=== PATIENT | male | born 1945 | race Caucasian/White ===

== ENCOUNTER → 2018-08-29 07:34 | Outpatient (CLI) | payer MEDICARE, SELFPAY ==
[2018-08-16 11:30] VITALS: BMI 33.3
--- NOTE | 2018-08-29 07:37 | ECHOCS_ITS ---
Reason For Study: AFIB/FLUTTER Procedure This was a 2D Doppler, Color Flow transthoracic echocardiogram. Contrast injection was performed. The study was technically difficult. Left Ventricle Normal LV size. The estimated ejection fraction is 40 %. Moderate segmental systolic dysfunction (see wall motion). Septal motion consistent with IVCD. Diastolic function is indeterminate. Mid- anteroseptal : Akinetic. Mid-Anterior : Hypokinetic. Basal anteroseptal: Hypokinetic. Mobile : Hypokinetic. The rest of the wall segments are normal. Right Ventricle Normal size and thickness. Normal systolic function. Atria Normal left atrium. Normal right atrium. Mitral Valve Mild (1+) eccentric mitral valve insufficiency. Status post mitral valve repair. Tricuspid Valve Normal tricuspid valve. Mild tricuspid valve insufficiency. Aortic Valve Trisinus/trileaflet aortic valve. Pulmonic Valve Normal pulmonic valve. Mild (1+) pulmonic valve insufficiency. Great Vessels Normal aortic root. The pulmonary artery is normal size. Normal inferior vena cava. Pericardium/Pleural No pericardial effusion. Medication 22 gauge I.V. with prn adaptor inserted into left arm. Diluted definity 3ml given slow IV push to enhance endocardial definition. MMode/2D Measurements & Calculations LVIDd: 4.9 cm IVSd: 0.88 cm Ao root diam: 3.2 cm LVIDs: 4.3 cm LVPWd: 0.99 cm RVDd: 4.4 cm FS: 12.9 % LAV(MOD-bp): 53.6 ml LVAd ap4: 32.5 cm2 SV(MOD-sp4): 21.9 ml LAV(MOD-bp) Indexed: 25.6 ml/m2 EDV(MOD-sp4): 110.4 ml LAV(MOD-sp2): 46.1 ml EDV(sp4-el): 114.6 ml LAV(MOD-sp4): 55.9 ml LVAs ap4: 28.9 cm2 ESV(MOD-sp4): 88.5 ml ESV(sp4-el): 91.7 ml EF(MOD-sp4): 19.8 % EF(sp4-el): 20.0 % SV(sp4-el): 22.9 ml LA A4 area: 20.0 cm2 LA dimension(2D): 5.0 cm RA A4 area: 16.5 cm2 Time Measurements MV dec time: 0.06 sec Doppler Measurements & Calculations MV E max jose: 152.9 cm/sec MV V2 max: 155.1 cm/sec Ao V2 max: 111.2 cm/sec MV max P.6 mmHg Ao max P.0 mmHg MV V2 mean: 63.4 cm/sec MV mean P.5 mmHg MV V2 VTI: 30.6 cm LV V1 max: 90.5 cm/sec PA V2 max: 108.9 cm/sec TR max jose: 152.0 cm/sec LV V1 max P.3 mmHg TR max P.2 mmHg MV P1/2t-pr_phl: 70.3 msec Interpretation Summary Normal LV size. The estimated ejection fraction is 40 %. Septal motion consistent with IVCD. Diastolic function is indeterminate. Mild (1+) eccentric mitral valve insufficiency. Contrast injection was performed. Ordering Physician: German Pettit Referring Physician: MAURO MIRZA Performed By: Sydney Henry, GENE, RVT
== END ==
PROVIDERS: Family Provider Internal Medicine; PCP Internal Medicine; Referring Provider Internal Medicine Cardiovascular Disease; Visit Provider Internal Medicine Cardiovascular Disease
DX: I47.1 Supraventricular tachycardia (principal); I48.0 Paroxysmal atrial fibrillation; R42 Dizziness and giddiness; R00.0 Tachycardia, unspecified; I50.31 Acute diastolic (congestive) heart failure
CPT/HCPCS: 93225; 93226; 93306; Q9957; A4216; C8929

== ENCOUNTER 2018-09-11 10:03 | Day surgery (SDC) | payer MEDICARE, SELFPAY ==
[2018-09-07 13:15] VITALS: BMI 34.2
--- NOTE | 2018-09-07 13:56 | HP_ITS ---
HPI HPI Surgical H&P: Yes Details: ANANDA DUPREE, is a 73 M who presents to the office today for a visit. He is a gentleman with a history of coronary artery disease status post coronary artery bypass surgery remotely with a left internal mammary artery to the left anterior descending artery, saphenous vein graft to the obtuse marginal branch, saphenous vein graft to the posterior descending artery. He had previously been followed by the physicians in [place]. In 2015 he underwent a left heart catheterization which demonstrated a patent left internal mammary artery to the left anterior descending artery and the 2 saphenous vein grafts were occluded. In January 2016 he underwent angioplasty and stenting of the proximal and distal [place] circumflex artery in February 2016 he underwent angioplasty of the first and second obtuse marginal branch in the mid circumflex artery. It appears that he presented to [facility] with rapid heart rate and palpitations and he was noted to be in some sort of supraventricular tachycardia with a rate of approximately 120 to 140 bpm and a left bundle branch block pattern. He also has a history of hypertension, hyperlipidemia, ischemic cardiomyopathy. He was given intravenous adenosine with transient slowing of the heart rate and also Cardizem. It demonstrated that he was in an atrial fibrillation flutter rhythm. He was taking the diltiazem but he has had to change the times that he takes it because he still has some tachycardia. It appears that his last echocardiogram in 2013 had demonstrated an ejection fraction of approximately 30%. He has also been short of breath with exertion but he has had no chest pain. He has had no dizziness or diaphoresis no syncope or syncope. He still feels that his heart rate is fast. His electrocardiogram today demonstrates a wide complex tachycardia with a left bundle branch block pattern and a rate of 122 bpm which is suspicious for atrial flutter with a 2-1 block. 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 Accompanied by: Is patient in pain?: No Allergies Penicillins Allergy (Severe, Verified 09/07/18 13:11) Hives valsartan Allergy (Severe, Verified 09/07/18 13:11) Anaphylaxis diazepam Adverse Reaction (Severe, Verified 09/07/18 13:11) Confusion hydrocodone Adverse Reaction (Severe, Verified 09/07/18 13:11) Hallucintations pantoprazole [From Protonix] Adverse Reaction (Intermediate, Verified 09/07/18 13:11) Nausea propylene glycol Adverse Reaction (Intermediate, Verified 09/07/18 13:11) Vomiting ticagrelor [From Brilinta] Adverse Reaction (Intermediate, Verified 09/07/18 13:11) Shortness of Breath tramadol Adverse Reaction (Intermediate, Verified 09/07/18 13:11) constipation, decreased urination Medications Lactobacillus acidophilus capsule See Rx Instructions PO DAILY 02/14/18 [History Confirmed 09/07/18] nitroglycerin 0.4 mg sublingual tablet 0.4 mg SUBLINGUAL Q5-15M PRN 02/14/18 [History Confirmed 09/07/18] apixaban 5 mg tablet 5 mg PO BID #180 tab 08/16/18 [Rx Confirmed 09/07/18] carvedilol 25 mg tablet 25 mg PO BID #180 tab 08/16/18 [Rx Confirmed 09/07/18] furosemide 40 mg tablet 40 mg PO DAILY #90 tab 08/16/18 [Rx Confirmed 09/07/18] diltiazem CD 180 mg capsule,extended release 24 hr 180 mg PO DAILY #30 cap 08/25/18 [Rx Confirmed 09/07/18] amiodarone 200 mg tablet 200 mg PO DAILY #90 tab 09/07/18 [Rx Confirmed 09/07/18] lisinopril 10 mg tablet 10 mg PO DAILY #90 tab 09/07/18 [Rx Confirmed 09/07/18] [facility] Medical History Acute diastolic (congestive) heart failure (Chronic) Left bundle branch block (Chronic) Paroxysmal supraventricular tachycardia (Chronic) Paroxysmal atrial fibrillation (Chronic) Essential (primary) hypertension (Chronic) Chronic systolic (congestive) heart failure (Chronic) Hyperlipidemia (Chronic) Ischemic cardiomyopathy (Chronic) History of non-ST elevation myocardial infarction (NSTEMI) (Chronic) Atherosclerotic heart disease of [place] coronary artery without angina pectoris (Chronic) Obesity (Chronic) Type 2 diabetes mellitus (Chronic) Lower GI bleed (Resolved) Surgical History H/O coronary artery bypass surgery (Resolved 02/04/14) History of coronary artery stent placement (Resolved 03/23/16) History of mitral valve repair (Chronic 02/04/14) History of rectal abscess (Chronic) History of cardioversion (Resolved 02/28/14) History of left heart catheterization (Resolved 12/09/15) Family History Father CAD (coronary artery disease) Hypertension Mother CAD (coronary artery disease) Brother Diabetes CAD (coronary artery disease) Colon cancer Sister Diabetes Social History Smoking Status: Former smoker ROS Const Const: Positive for fatigue; negative for weakness, headache(s), frequent falls, night sweats, daytime sleepiness or excessive sweating Eyes Eyes: Negative for blind spots, loss of peripheral vision, transient loss of vision, blurry vision or double vision ENT ENT: Negative for headache(s), dizziness, Nosebleed/epistaxis, balance problems, lip swelling or tongue swelling Cardio Chest Pain: No Palpitations: No Edema: None Muscle aches with walking: None Resp Respiratory: Negative for SOB with activity, SOB at rest, SOB orthopnea\SOB lying down, Cough or paroxysmal nocturnal dyspnea GI GI: Negative nausea, vomiting, heartburn, bright, red blood in stools or black,tarry stools : Negative for hematuria Musc Musc: Negative for muscle aches/ myalgia, muscle weakness, joint pain or balance problems Skin Skin: Negative non-healing lesions, rash or unusual bruising Neuro Neuro: Negative for dizziness, lightheadedness, orthostatic symptoms, frequent falls, headache(s), weakness, blurry vision, double vision or lack of coordination Darius Hematologic/Lymphatic: Negative for easy bleeding or easy bruising Endo Endo: Positive for fatigue; negative for cold intolerance, heat intolerance, excessive sweating, increased thirst/drinking or hair loss Psych Psych: Negative for anxiety or depression Allergy Allergy/Immunology: Negative for throat swelling, Negative for tongue swelling, Negative for hives, Negative for rash, Negative for lip swelling Cardiology Exam Const Appearance: cooperative, healthy appearing, no acute distress, well developed and well groomed Nutritional Appearance: average body habitus and well nourished Orientation: alert, awake and oriented x3 Head Head: normal to inspection, normocephalic and atraumatic Ears: hearing grossly normal bilaterally and external ears normal Nose: external nose normal, nares normal, nasal mucous membranes and turbinates normal, septum normal, no nasal discharge Face and Sinus: face symmetric Mouth: oral mucosae normal, tongue normal, oropharynx normal and moist mucous membranes Teeth and gingiva: dentition normal Throat: posterior oropharynx normal, tonsils normal and uvula midline Eyes General: appearance normal, both eyes and all related structures Eyelids: eyelids normal Conjunctivae: conjunctivae normal Pupils: PERRL, normal by confrontation and accommodation normal EOM: EOM intact bilaterally Neck Neck: normal visual inspection, trachea midline and no JVD JVD: +5 Carotids: normal carotid upstroke and bounding pulses Chest Chest inspection: normal inspection of the chest, symmetric chest movement and normal respiratory effort Auscultation: Bilateral: Clear to Auscultation Cardio Palpation: normal PMI Rate: regular rate Rhythm: regular rhythm Heart sounds: S1 normal, S2 normal and normal, physiologic split S2; negative rub, gallop or murmur GI GI: normal to inspection, soft, no hepatosplenomegaly and bowel sounds present Neuro General: alert, awake, oriented x3, gait normal, moves all extremities and no focal sensory deficit Skin Skin: no rashes or lesions noted Extremities Pulses: Normal: Right Femoral Pulse, Left Femoral Pulse, Right Dorsalis Pedis Pulse, Left Dorsalis Pedis Pulse, Right Posterior Tibial Pulse, Left Posterior Tibial Pulse, Right Radial Pulse, Left Radial Pulse Lower Extremity Edema: None: Bilateral Musculoskel Musculoskeletal: No joint tenderness Psych Psychological: normal affect Assessment & Plan 1. Paroxysmal supraventricular tachycardia I47.1 Plan He does have a history of paroxysmal supraventricular tachyarrhythmia. It appears that he is still remaining in this rhythm. I would therefore recommend that as he has been on anticoagulation for at least 3 weeks we start him on amiodarone 200 mg a day and consider him for DC cardioversion. The risk benefits alternatives been explained to him he understands and agrees to proceed. Orders Orders: Cardioversion 4 Days 2. History of coronary artery stent placement Z95.5 [id number] RCA and Prox RCA 02/24/16, PCI-Prox OM1, Prox OM2 and Mid LCx 03/23/2016 Plan He is status post previous angioplasty and stenting as noted above. He has not had any evidence of ischemia and the plan is to continue him on the current medical therapy. He did undergo a stress test in June 2016. 3. Essential (primary) hypertension I10 Plan He does have a history of hypertension and his blood pressure at the moment is borderline I would not recommend we make any major changes. 4. Ischemic cardiomyopathy I25.5 EF 35-40% per cath 02/02/2014 @ [facility]; 49% per MUGA 12/11/14; then reduced to 25% per echo 11/18/15 done @ [facility]. Back up to 44% per echo 07/30/2016 @ [facility] Plan He does have a history of ischemic cardiomyopathy. His most recent ejection fraction by echocardiogram was estimated to be approximately 44%. There was global hypokinesis noted, stage III diastolic dysfunction, and mild to moderate mitral regurgitation 5. H/O coronary artery bypass surgery Z95.1 CABG X 3: BRYANT to LAD, SVG to OM and SVG to PDA w/ mitral valve size 28 Future Annuloplasty bands per Dr. Dupont [facility]. 02/04/2014 Plan He is status post triple-vessel bypass surgery. He did undergo stress testing in June 2016. It demonstrated mild inferior septal and distal inferior wall ischemia. As you know he does have evidence of his 2 saphenous vein grafts which are occluded and he underwent angioplasty and stenting of the proximal and distal [place] circumflex artery. I suspect that some of his ischemia is still in this territory. We will repeat his stress test in 3 months after he is converted back to sinus rhythm 6. Hyperlipidemia E78.5 Plan He does have a history of hyperlipidemia and he will continue on high intensity statin. 7. Chronic systolic (congestive) heart failure I50.22 He does have a history of chronic congestive heart failure. His recent blood work that was performed demonstrated a BNP of 175. He is on furosemide 40 mg daily which will be continued. 8. History of mitral valve repair Z98.890 Mitral valve repair (hx 3+ mitral regurg) done at that time with size 28 Future Annuloplasty bands. per Dr. Dupont [facility] (CABG X 3 done at that time also) Plan He does have a history of mitral valve repair. He does had an echocardiogram performed with demonstrated an ejection fraction of 40% with 1+ mitral regurgitation. My recommendation is for him to continue the current medical therapy with no other changes. Thank you for allowing me to participate in the care of your patient. Please don't hesitate to call if any issues arise Plan Detail Other Orders Orders: 12 Lead EKG performed by BMS Today I48.0 Other Medications New: amiodarone 200 mg PO DAILY 90 tabs 3RF Changed: From: lisinopril 20 mg PO DAILY 90 tabs 3RF To: lisinopril 10 mg PO DAILY 90 tabs 3RF Follow Up 3 Months (farm manager) Coding Level of Care Code Off vis,est,level 5 Diagnoses Paroxysmal supraventricular tachycardia I47.1 History of coronary artery stent placement Z95.5 Essential (primary) hypertension I10 Ischemic cardiomyopathy I25.5 H/O coronary artery bypass surgery Z95.1 Hyperlipidemia E78.5 Chronic systolic (congestive) heart failure I50.22 History of mitral valve repair Z98.890 Coding Level of Care Code Off vis,est,level 5 Diagnoses Paroxysmal supraventricular tachycardia I47.1 History of coronary artery stent placement Z95.5 Essential (primary) hypertension I10 Ischemic cardiomyopathy I25.5 H/O coronary artery bypass surgery Z95.1 Hyperlipidemia E78.5 Chronic systolic (congestive) heart failure I50.22 History of mitral valve repair Z98.890 Supplemental Info Supplemental Information Diagnostics Electrocardiogram 09/07/18 Echocardiogram 08/29/18
[2018-09-08 07:44] VITALS: BMI 34.2
--- NOTE | 2018-09-11 12:59 | PCM.OP.PRO ---
Procedure Report Date of Procedure: 09/11/18 DC cardioversion. 73-year-old male with a history of coronary artery disease and atrial tachyarrhythmia with shortness of breath. The patient was brought into the cardiac catheterization lab in the postabsorptive nonsedated state. The patient was evaluated by Dr. Magaña of the critical care division. After informed consult was obtained anterior-posterior pads were applied. The patient then received 80 mg of intravenous etomidate. 200 J of synchronized DC cardioversion energy were applied with prompt reversal to sinus rhythm. Patient tolerated the procedure well. Postprocedure EKG demonstrated sinus bradycardia. Conclusion: Successful DC cardioversion to sinus rhythm. Continue carvedilol. Discontinue diltiazem Amiodarone discontinued.
--- NOTE | 2018-09-11 13:27 | PCM.OP.PRO ---
Problem List (1) Chronic systolic (congestive) heart failure Status: Chronic Comment: He does have a history of chronic congestive heart failure. His recent blood work that was performed demonstrated a BNP of 175. He is on furosemide 40 mg daily which will be continued. (2) Essential (primary) hypertension Status: Chronic (3) History of mitral valve repair Status: Chronic Comment: Mitral valve repair (hx 3+ mitral regurg) done at that time with size 28 Future Annuloplasty bands. per Dr. Dupnot [facility] (CABG X 3 done at that time also) (4) Hyperlipidemia Status: Chronic (5) Ischemic cardiomyopathy Status: Chronic Comment: EF 35-40% per cath 02/02/2014 @ [facility]; 49% per MUGA 12/11/14; then reduced to 25% per echo 11/18/15 done @ [facility]. Back up to 44% per echo 07/30/2016 @ [facility] (6) Left bundle branch block Status: Chronic (7) Paroxysmal atrial fibrillation Status: Chronic (8) H/O coronary artery bypass surgery Status: Resolved Comment: CABG X 3: BRYANT to LAD, SVG to OM and SVG to PDA w/ mitral valve size 28 Future Annuloplasty bands per Dr. Dupont [facility]. 02/04/2014 (9) History of coronary artery stent placement Status: Resolved Comment: [id number] RCA and Prox RCA 02/24/16, PCI-Prox OM1, Prox OM2 and Mid LCx 03/23/2016 Procedure Report Date of Procedure: 09/11/18 - Conscious sedation CONSCIOUS SEDATION REPORT BRIEF HISTORY OF PRESENT ILLNESS: The patient is a 73-year-old male who presented to [facility] for an elective outpatient cardioversion due to underlying atrial fibrillation. The patient reports no PO intake since midnight. The patient does not have a reported history of obstructive sleep apnea, but does snore. The patient reports a history of smoking, but denies COPD. The patient denies any recent constitutional symptoms such as fevers, chills, nausea or vomiting. The patient denies previous anesthetic complications. Last known ejection fraction of 44%. PHYSICAL EXAMINATION: VITAL SIGNS: Reviewed and were acceptable. GENERAL: The patient is a male, in no apparent distress, speaking in full sentences. HEENT: Normocephalic, atraumatic. Mucous membranes are moist and pink. Good mouth opening noted. Trachea is midline. Good neck mobility. MP IV CHEST: S1, S2 irregularly irregular. No murmurs, rubs or gallops were noted. LUNGS: Clear to auscultation bilaterally without appreciable wheezes, rales or rhonchi. ABDOMEN: Soft, nontender, nondistended. Positive bowel sounds. EXTREMITIES: There is no clubbing, cyanosis or edema. ASA Class: II DESCRIPTION OF PROCEDURE: After confirmation of informed consent, the patient's anesthesia plan was reviewed in detail. Etomidate was chosen. Risks and benefits were reviewed and the patient agreed to proceed. At 12:07 PM, the patient was given 4 mg of etomidate. The patient required a total of 8 mg of etomidate throughout the procedure to achieve appropriate sedation. The patient achieved an appropriate level of sedation and received 1 attempt synchronized cardioversion, at [address] Pettit at the bedside. This was successful in achieving sinus bradycardia. The patient was monitored until 12:15 PM, at which time the patient reached their baseline mental status and function. The patient tolerated the procedure well. COMPLICATIONS: None ESTIMATED BLOOD LOSS: None RECOMMENDATIONS: Okay to recover in usual fashion. Code Visit 9xxxx: Other Procedure See Report - 75009 -8 minutes conscious sedation
--- NOTE | 2018-09-11 13:30 | PRO.PCM_ITS ---
Problem List (1) Chronic systolic (congestive) heart failure Status: Chronic Comment: He does have a history of chronic congestive heart failure. His recent blood work that was performed demonstrated a BNP of 175. He is on furosemide 40 mg daily which will be continued. (2) Essential (primary) hypertension Status: Chronic (3) History of mitral valve repair Status: Chronic Comment: Mitral valve repair (hx 3+ mitral regurg) done at that time with size 28 Future Annuloplasty bands. per Dr. Dupont [facility] (CABG X 3 done at that time also) (4) Hyperlipidemia Status: Chronic (5) Ischemic cardiomyopathy Status: Chronic Comment: EF 35-40% per cath 02/02/2014 @ [facility]; 49% per MUGA 12/11/14; then reduced to 25% per echo 11/18/15 done @ [facility]. Back up to 44% per echo 07/30/2016 @ [facility] (6) Left bundle branch block Status: Chronic (7) Paroxysmal atrial fibrillation Status: Chronic (8) H/O coronary artery bypass surgery Status: Resolved Comment: CABG X 3: BRYANT to LAD, SVG to OM and SVG to PDA w/ mitral valve size 28 Future Annuloplasty bands per Dr. Dupont [facility]. 02/04/2014 (9) History of coronary artery stent placement Status: Resolved Comment: [id number] RCA and Prox RCA 02/24/16, PCI-Prox OM1, Prox OM2 and Mid LCx 03/23/2016 Procedure Report Date of Procedure: 09/11/18 - Conscious sedation CONSCIOUS SEDATION REPORT BRIEF HISTORY OF PRESENT ILLNESS: The patient is a 73-year-old male who presented to [facility] for an elective outpatient cardioversion due to underlying atrial fibrillation. The patient reports no PO intake since midnight. The patient does not have a reported history of obstructive sleep apnea, but does snore. The patient reports a history of smoking, but denies COPD. The patient denies any recent constitutional symptoms such as fevers, chills, nausea or vomiting. The patient denies previous anesthetic complications. Last known ejection fraction of 44%. PHYSICAL EXAMINATION: VITAL SIGNS: Reviewed and were acceptable. GENERAL: The patient is a male, in no apparent distress, speaking in full sentences. HEENT: Normocephalic, atraumatic. Mucous membranes are moist and pink. Good mouth opening noted. Trachea is midline. Good neck mobility. MP IV CHEST: S1, S2 irregularly irregular. No murmurs, rubs or gallops were noted. LUNGS: Clear to auscultation bilaterally without appreciable wheezes, rales or rhonchi. ABDOMEN: Soft, nontender, nondistended. Positive bowel sounds. EXTREMITIES: There is no clubbing, cyanosis or edema. ASA Class: II DESCRIPTION OF PROCEDURE: After confirmation of informed consent, the patient's anesthesia plan was reviewed in detail. Etomidate was chosen. Risks and benefits were reviewed and the patient agreed to proceed. At 12:07 PM, the patient was given 4 mg of etomidate. The patient required a total of 8 mg of etomidate throughout the procedure to achieve appropriate sedation. The patient achieved an appropriate level of sedation and received 1 attempt synchronized cardioversion, at [address] Pettit at the bedside. This was successful in achieving sinus bradycardia. The patient was monitored until 12:15 PM, at which time the patient reached their baseline mental status and function. The patient tolerated the procedure well. COMPLICATIONS: None ESTIMATED BLOOD LOSS: None RECOMMENDATIONS: Okay to recover in usual fashion. Code Visit 9xxxx: Other Procedure See Report - 47733 -8 minutes conscious sedation
== END 2018-09-11 13:15 | disposition home or self-care (01) ==
LOC: CLSP 10:06
PROVIDERS: Family Provider Internal Medicine; PCP Internal Medicine; Referring Provider Internal Medicine Cardiovascular Disease; Visit Provider Internal Medicine Cardiovascular Disease
DX: I47.1 Supraventricular tachycardia (principal); I48.0 Paroxysmal atrial fibrillation; I11.0 Hypertensive heart disease with heart failure; I50.22 Chronic systolic (congestive) heart failure; I25.5 Ischemic cardiomyopathy; E78.5 Hyperlipidemia, unspecified; I25.2 Old myocardial infarction; E66.9 Obesity, unspecified; E11.9 Type 2 diabetes mellitus without complications; Z95.5 Presence of coronary angioplasty implant and graft; Z95.1 Presence of aortocoronary bypass graft; Z98.890 Other specified postprocedural states; Z79.899 Other long term (current) drug therapy; Z68.34 Body mass index [BMI] 34.0-34.9, adult; Z87.891 Personal history of nicotine dependence
CPT/HCPCS: 92960; 93005; J7040

== ENCOUNTER → 2018-10-25 | Outpatient (CLI) | payer MEDICARE, SELFPAY ==
[2018-09-08 07:44] VITALS: BMI 34.2
[2018-10-25 15:09] LABS: Absolute Lymphocyte Count 1.61 X10^3/ul (0.83-4.51); Absolute Neutrophil Count 4.7 X10^3/uL (2.0-7.7); Basophil# 0.05 X10^3/uL; Basophil% 0.7 % (0-1); Eosinophil# 0.33 X10^3/uL; Eosinophils% 4.3 % (0-5); Lymphocyte # 1.61 X10^3/ul (4.0); Lymphocyte % 21.1 % (19-41); Mean Corp Hgb Conc 31.7 g/gl (32-36); Mean Corpuscular Hgb 28.3 pg (27.0-32.0); Mean Corpuscular Volume 89.1 fL (80-94); Mean Platelet Vol. 10.1 fl (6.2-12.0); Monocyte# 0.86 X10^3/uL; Monocyte% 11.3 % (0-10); Neutrophil # 4.74 X10^3/uL (2.7-7.7); Neutrophil % 62.2 % (47-70); Platelet Count 177 K/mm3 (150-450); RBC Distribution Width CV 15.1 % (11.6-14.6); RBC Distribution Width SD 48.5 fl (35.1-43.9); White Blood Count 7.6 K/mm3 (4.4-11.0)
[2018-10-25 15:13] LABS: POSITIVE COUNT NO; POSITIVE DIFFERENTIAL NO; POSITIVE MORPHOLOGY NO
[2018-10-25 15:20] LABS: Anion Gap 5 (5-15); BUN 14 mg/dL (7-18); BUN/Creat Ratio 10.3 RATIO (10-20); Chloride 104 mmol/L (98-107); Creatinine, Serum 1.36 mg/dL (0.70-1.30); EST Glomerular Filtration Rate 55 mL/min (>60); Est Glom Filt Rate - Afr Amer 66 mL/min (>60); Glucose 128 mg/dL (74-106); Potassium 3.8 mmol/L (3.5-5.1); Sodium Level 139 mmol/L (136-145)
[2018-10-25 15:27] LABS: BNP,B-Type NATRIURETIC PEPTIDE 86.2 pg/mL (0-100)
== END | disposition home or self-care (01) ==
PROVIDERS: Family Provider Internal Medicine; PCP Internal Medicine; Referring Provider Physician Assistant Medical; Visit Provider Physician Assistant Medical
DX: I50.22 Chronic systolic (congestive) heart failure (principal); R06.00 Dyspnea, unspecified
CPT/HCPCS: 36415; 80048; 83880; 85025

== ENCOUNTER → 2019-01-19 | Outpatient (CLI) | payer MEDICARE, SELFPAY ==
[2019-01-19 11:30] VITALS: BMI 33.4
[2019-01-19 13:45] LABS: Anion Gap 5 (5-15); BUN 19 mg/dL (7-18); BUN/Creat Ratio 11.7 RATIO (10-20); Calcium,Total 9.1 mg/dL (8.5-10.1); Chloride 108 mmol/L (98-107); Creatinine, Serum 1.63 mg/dL (0.70-1.30); EST Glomerular Filtration Rate 44 mL/min (>60); Est Glom Filt Rate - Afr Amer 54 mL/min (>60); Glucose 176 mg/dL (74-106); Potassium 4.3 mmol/L (3.5-5.1); Sodium Level 141 mmol/L (136-145)
== END | disposition home or self-care (01) ==
LOC: LAB 12:51
PROVIDERS: Family Provider Internal Medicine; PCP Internal Medicine; Referring Provider Nurse Practitioner Family; Visit Provider Nurse Practitioner Family
DX: I25.10 Atherosclerotic heart disease of native coronary artery without angina pectoris (principal); I25.5 Ischemic cardiomyopathy; I48.0 Paroxysmal atrial fibrillation
CPT/HCPCS: 36415; 80048

== ENCOUNTER 2019-01-22 10:12 | Day surgery (SDC) | payer MEDICARE, SELFPAY ==
[2019-01-19 11:30] VITALS: BMI 33.4
[2019-01-19 13:19] VITALS: BMI 33.4
--- NOTE | 2019-01-22 07:55 | HP.PCM_ITS ---
History and Physical Date of Admission: 01/22/19 HPI HPI History of Present Illness Surgical H&P: Yes Details: ANANDA DUPREE, is a 73 M who presents to the [facility] for cardioversion. He is a gentleman with a history of coronary artery disease status post coronary artery bypass surgery remotely with a left internal mammary artery to the left anterior descending artery, saphenous vein graft to the obtuse marginal branch, saphenous vein graft to the posterior descending artery. He had previously been followed by the physicians in [place]. In 2015 he underwent a left heart catheterization which demonstrated a patent left internal mammary artery to the left anterior descending artery and the 2 saphenous vein grafts were occluded. In January 2016 he underwent angioplasty and stenting of the proximal and distal [place] circumflex artery in February 2016 he underwent angioplasty of the first and second obtuse marginal branch in the mid circumflex artery. It appears that he presented to [facility] with rapid heart rate and palpitations and he was noted to be in some sort of supraventricular tachycardia with a rate of approximately 120 to 140 bpm and a left bundle branch block pattern. He was given intravenous adenosine with transient slowing of the heart rate and also Cardizem. It demonstrated that he was in an atrial fibrillation flutter rhythm. He had his Coreg increased to 25 mg twice a day. He also has a history of paroxysmal atrial fibrillation with cardioversion on 02/28/2014 and 09/11/2018, hypertension, hyperlipidemia, ischemic cardiomyopathy. He states yesterday morning he felt his heart beat faster in his left hand digit #1. This prompted him to put his pulse ox and noted his heart rate to be 110s. He took one Cardizem 180mg pill. After five hours this improved his heart into 60s. The following morning his heart rate was again noted to be elevated. He thus contacted our office for further treatment plan. He denies any chest, arm, jaw, or neck pain. He denies any chest palpitations. He denies any significant shortness of breath. He does acknowledge intermittent lightheadedness. He denies any presyncope or syncopal episodes. He denies any lower extremity edema. He denies any claudication. Denies any orthopnea, PND, or myalgia. He states feeling more tired than usual this morning. 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 Is patient in pain?: No Allergies Penicillins Allergy (Severe, Verified 01/19/19 11:30) Hives valsartan Allergy (Severe, Verified 01/19/19 11:30) Anaphylaxis amiodarone Allergy (Intermediate, Verified 01/19/19 11:30) Shortness of breath diazepam Adverse Reaction (Severe, Verified 01/19/19 11:30) Confusion hydrocodone Adverse Reaction (Severe, Verified 01/19/19 11:30) Hallucintations pantoprazole [From Protonix] Adverse Reaction (Intermediate, Verified 01/19/19 11:30) Nausea propylene glycol Adverse Reaction (Intermediate, Verified 01/19/19 11:30) Vomiting ticagrelor [From Brilinta] Adverse Reaction (Intermediate, Verified 01/19/19 11:30) Shortness of Breath tramadol Adverse Reaction (Intermediate, Verified 01/19/19 11:30) constipation, decreased urination Medications nitroglycerin 0.4 mg sublingual tablet 0.4 mg SUBLINGUAL Q5-15M PRN 02/14/18 [History Confirmed 01/19/19] apixaban 5 mg tablet 5 mg PO BID #180 tab 08/16/18 [Rx Confirmed 01/19/19] lisinopril 10 mg tablet 10 mg PO DAILY #90 tab 09/07/18 [Rx Confirmed 01/19/19] simvastatin 20 mg tablet 20 mg PO QHS #90 tab 01/02/19 [Rx Confirmed 01/19/19] carvedilol 25 mg tablet 12.5 mg PO BID tab 01/19/19 [History] diltiazem CD 180 mg capsule,extended release 24 hr 180 mg PO DAILY #30 cap 01/19/19 [Rx Confirmed 01/19/19] furosemide 40 mg tablet 20 mg PO DAILY tab 01/19/19 [History Confirmed 01/19/19] [facility] Medical History (Updated 01/19/19 @ 13:11 by TARIQ Ferreira) Left bundle branch block (Chronic) Paroxysmal supraventricular tachycardia (Chronic) Paroxysmal atrial fibrillation (Chronic) Essential (primary) hypertension (Chronic) Chronic systolic (congestive) heart failure (Chronic) Hyperlipidemia (Chronic) Ischemic cardiomyopathy (Chronic) History of non-ST elevation myocardial infarction (NSTEMI) (Chronic) Atherosclerotic heart disease of [place] coronary artery without angina pectoris (Chronic) Obesity (Chronic) Type 2 diabetes mellitus (Chronic) Lower GI bleed (Resolved) Acute diastolic (congestive) heart failure (Inactive) Surgical History (Updated 09/11/18 @ 18:02 by Jess Cook) H/O coronary artery bypass surgery (Resolved 02/04/14) History of coronary artery stent placement (Resolved 03/23/16) History of mitral valve repair (Chronic 02/04/14) History of rectal abscess (Chronic) History of cardioversion (Resolved 09/11/18) History of left heart catheterization (Resolved 12/09/15) Family History (Updated 02/14/18 @ 09:06 by Adamaris Barnett) Father CAD (coronary artery disease) Hypertension Mother CAD (coronary artery disease) Brother Diabetes CAD (coronary artery disease) Colon cancer Sister Diabetes Social History (Updated 01/19/19 @ 13:22 by Simon Ibarra PRODUCT INSPECTION SUPERVISOR-C) Smoking Status: Former smoker how long ago did patient quit smokin years ago alcohol intake: never substance use type: does not use caffeine: No ROS Const Const: Positive for fatigue; negative for weakness, body ache, fever(s) or chills ENT ENT: Positive for dizziness Cardio Chest Pain: No Palpitations: No Edema: None Muscle aches with walking: None Resp Respiratory: Negative for SOB with activity, SOB at rest, SOB orthopnea\SOB lying down or paroxysmal nocturnal dyspnea GI GI: Negative nausea, vomiting blood/hematemesis, bright, red blood in stools or black,tarry stools : Negative for hematuria or frequent nighttime urination/ nocturia Musc Musc: Negative for muscle aches/ myalgia Skin Skin: Negative non-healing lesions or rash Neuro Neuro: Positive for dizziness; negative for lightheadedness, near syncope, syncope, orthostatic symptoms or weakness Endo Endo: Positive for fatigue Allergy Allergy/Immunology: Negative for rash Cardiology Exam Const Appearance: cooperative, healthy appearing, no acute distress, well developed and well groomed Nutritional Appearance: well nourished and obese Orientation: alert, awake and oriented x3 Head Head: normal to inspection, normocephalic and atraumatic Ears: hearing grossly normal bilaterally and external ears normal Nose: external nose normal, nares normal, nasal mucous membranes and turbinates normal, septum normal, no nasal discharge Face and Sinus: face symmetric Mouth: oral mucosae normal, tongue normal, oropharynx normal and moist mucous membranes Teeth and gingiva: dentition normal Throat: posterior oropharynx normal, tonsils normal and uvula midline Eyes General: appearance normal, both eyes and all related structures Eyelids: eyelids normal Conjunctivae: conjunctivae normal Pupils: PERRL, normal by confrontation and accommodation normal EOM: EOM intact bilaterally Neck Neck: normal visual inspection, trachea midline and no JVD JVD: +5 Carotids: normal carotid upstroke and bounding pulses Chest Chest inspection: normal inspection of the chest, symmetric chest movement and normal respiratory effort Auscultation: Bilateral: Diminished Lung Sounds Cardio Palpation: normal PMI Rate: tachycardic Rhythm: regular rhythm Heart sounds: S1 normal, S2 normal and normal, physiologic split S2; negative rub, gallop or murmur GI GI: normal to inspection, soft, no hepatosplenomegaly, bowel sounds present and obese Neuro General: alert, awake, oriented x3, gait normal, moves all extremities and no focal sensory deficit Skin Skin: no rashes or lesions noted Extremities Pulses: Normal: Right Femoral Pulse, Left Femoral Pulse, Right Dorsalis Pedis Pulse, Left Dorsalis Pedis Pulse, Right Posterior Tibial Pulse, Left Posterior Tibial Pulse, Right Radial Pulse, Left Radial Pulse Lower Extremity Edema: None: Bilateral Musculoskel Musculoskeletal: No joint tenderness Psych Psychological: normal affect Assessment & Plan 1. Paroxysmal atrial fibrillation I48.0 DCCV on 02/28/2014 and 09/11/2018. Plan His EKG showed atrial fibrillation at a rate of 123 bpm in office. He was asked to hold his lisinopril due to lower blood pressure readings in office He was asked to initiate Cardizem 180 mg p.o. daily in conjunction with his Coreg 12.5 mg p.o. twice daily. He underwent laboratory evaluation in preparation for cardioversion office visit. He will recently underwent cardioversion on 09/11/2018. At that time his amiodarone was discontinued due to shortness of breath and his diltiazem was discontinued due to lightheadedness. 2. Atherosclerotic heart disease of [place] coronary artery without angina pecto ris I25.10 [id number] RCA and Prox RCA 02/24/16, PCI-Prox OM1, Prox OM2 and Mid LCx 03/23/2016 CABG X 3: BRYANT to LAD, SVG to OM and SVG to PDA w/ mitral valve repair done at that time with size 28 Future Annuloplasty 02/04/2015 Plan He denies any recurrent chest pain or shortness of breath. His last echocardiogram was August 2018 that showed ejection fraction 40% and normal atrial size. His last stress echocardiogram was in March 2017. Depending on his overall progress a repeat stress test can be considered given history of underlying coronary disease. 3. H/O coronary artery bypass surgery Z95.1 CABG X 3: BRYANT to LAD, SVG to OM and SVG to PDA w/ mitral valve size 28 Future Annuloplasty bands per Dr. Dupont [facility]. 02/04/2014 Plan At this time, he will continue current medical therapy. 4. History of coronary artery stent placement Z95.5 [id number] RCA and Prox RCA 02/24/16, PCI-Prox OM1, Prox OM2 and Mid LCx 03/23/2016 Plan As above, he will continue with current medical therapy. We will continue to monitor. 5. Ischemic cardiomyopathy I25.5 EF 35-40% per cath 02/02/2014 @ [facility]; 49% per MUGA 12/11/14; then reduced to 25% per echo 11/18/15 done @ [facility]. Back up to 44% per echo 07/30/2016 @ [facility] Plan His echocardiogram in August 2018 showed ejection fraction of 40%. He does not appear to be in a fluid volume overload state. He will continue with current beta-ann and diuretic. His lisinopril is currently on hold due to lower blood pressure readings and initiating diltiazem. 6. History of mitral valve repair Z98.890 Mitral valve repair (hx 3+ mitral regurg) done at that time with size 28 Future Annuloplasty bands. per Dr. Dupont [facility] (CABG X 3 done at that time also) Plan His most recent echocardiogram from August 2018 showed mild (1+) eccentric mitral valve insufficiency. This appears stable on physical exam. He will continue current medical therapy and we will continue to monitor through history, exam, repeat echocardiogram. 7. Essential (primary) hypertension I10 Plan Depending on his overall progress, he may need to reinitiate lisinopril at a lower dose such at 2.5 mg p.o. daily or 5 mg p.o. daily. 8. Pure hypercholesterolemia E78.00 Plan His statin is currently on hold d/t reinitiating Cardizem. Given his history of CAD, this should be re-initiated. Additional Comments Thank you for allowing us to participate in the patients plan of care, if you have any questions please do not hesitate to call. This note was generated using a voice recognition system and there may be incorrect words, spelling or punctuation that were not noted when reviewing the office note prior to saving. Supplemental Info Supplemental Information Echocardiogram from 08/29/2018: Interpretation Summary Normal LV size. The estimated ejection fraction is 40 %. Septal motion consistent with IVCD. Diastolic function is indeterminate. Mild (1+) eccentric mitral valve insufficiency. Contrast injection was performed. Holter monitor from 08/29/2018: After heart rate was 86 bpm in atrial flutter with bundle branch block and variable block. The minimum heart rate was 52 bpm in atrial flutter. The maximum rate was 130 bpm in atrial flutter with bundle branch block. There is no ventricular ectopy Longest R-R interval was 2.4 seconds. There was no ventricular tachycardia. The patient kept a 24-hour diary and noted shortness of breath once. Stress echocardiogram from 07/08/2016 at [facility] [place]: Conclusions: 1?perfusion defect abnormality suggestive of mild inferior septal and distal inferior wall ischemia. 2?mild left ventricular cavity dilation. 3?mildly decreased global ejection fraction at 39%. 01/19/19 0323<Electronically signed by Simon POTTER> Date Simon POTTER
[2019-01-22 10:32] VITALS: BMI 32.7
--- NOTE | 2019-01-22 11:50 | CARDIOVERS ---
Cardioversion Cardioversion: DC cardioversion. 73-year-old man with a history of coronary bypass surgery, atrial flutter with a 2-1 block symptomatic. The patient was brought to the cardiac catheterization lab in the postabsorptive nonsedated state. Patient was seen by Dr. Alford of the critical care division. Informed consent was obtained for the procedure. Anterior-posterior pads were applied. EKG confirmed to the atrial flutter with 2-1 block. The patient was administered 6 mg of intravenous etomidate and 200 J of synchronized biphasic cardioversion energy were applied with prompt reversal to sinus rhythm. EKG confirmed postprocedure confucianist of sinus rhythm with a left bundle branch block. Patient tolerated the procedure well. Conclusion: Successful DC cardioversion to sinus rhythm. Continue current medications including beta-ann and calcium ann. No antiarrhythmic at the present time. Continue anticoagulation. Follow-up in my office.
--- NOTE | 2019-01-22 12:05 | PRO.PCM_ITS ---
Procedure Report Date of Procedure: 01/22/19 CONSCIOUS SEDATION REPORT DATE OF SERVICE: January 22, 2019 BRIEF HISTORY OF PRESENT ILLNESS: The patient is a 73-year-old male who presented to [facility] for an elective outpatient cardioversion due to underlying atrial fibrillation. The patient did undergo a previous cardioversion in August of this year, during which time 8 mg of etomidate was utilized to achieve an appropriate level of sedation. The patient denies a history of COPD or JAKY. Surface echocardiogram when last completed revealed an ejection fraction of 40%. The patient denies any previous anesthetic complications. PHYSICAL EXAMINATION: VITAL SIGNS: Reviewed and were acceptable. GENERAL: The patient is an obese male, in no apparent distress, speaking in full sentences. HEENT: Normocephalic, atraumatic. Mucous membranes are moist and pink. Good mouth opening noted. Trachea is midline. MPIII CHEST: S1, S2 irregularly irregular. No murmurs, rubs or gallops were noted. LUNGS: Clear to auscultation bilaterally without appreciable wheezes, rales or rhonchi. ABDOMEN: Soft, nontender, nondistended. Positive bowel sounds. EXTREMITIES: There is no clubbing, cyanosis or edema. ASA Class: II DESCRIPTION OF PROCEDURE: After confirmation of informed consent, the patient's anesthesia plan was reviewed in detail. Etomidate was chosen. Risks and benefits were reviewed and the patient agreed to proceed. At 1135, the patient was given 6 mg of etomidate. The patient achieved an appropriate level of sedation and was given a 200 joule synchronized cardioversion by Dr. Pettit at the bedside. This was successful in achieving normal sinus rhythm. The patient was monitored until 1142, at which time he reached his baseline mental status and function. The patient tolerated the procedure well. COMPLICATIONS: None ESTIMATED BLOOD LOSS: None RECOMMENDATIONS: Okay to recover in usual fashion. Code Visit 9xxxx: Other Procedure See Report - [id number]
== END 2019-01-22 12:55 | disposition home or self-care (01) ==
LOC: CLSP 10:14
PROVIDERS: Family Provider Internal Medicine; PCP Internal Medicine; Referring Provider Internal Medicine Cardiovascular Disease; Visit Provider Internal Medicine Cardiovascular Disease
DX: I48.0 Paroxysmal atrial fibrillation (principal); I25.10 Atherosclerotic heart disease of native coronary artery without angina pectoris; I25.5 Ischemic cardiomyopathy; E78.5 Hyperlipidemia, unspecified; I11.0 Hypertensive heart disease with heart failure; I50.22 Chronic systolic (congestive) heart failure; E66.9 Obesity, unspecified; I25.2 Old myocardial infarction; E11.9 Type 2 diabetes mellitus without complications; Z95.1 Presence of aortocoronary bypass graft; Z87.891 Personal history of nicotine dependence; Z79.02 Long term (current) use of antithrombotics/antiplatelets; Z79.899 Other long term (current) drug therapy
CPT/HCPCS: 92960; 93005; J7040

== ENCOUNTER → 2019-04-11 | Outpatient (CLI) | payer MEDICARE, SELFPAY ==
[2019-04-11 13:28] VITALS: BMI 33.7
[2019-04-11 15:57] LABS: Anion Gap 6 (5-15); BUN 21 mg/dL (7-18); BUN/Creat Ratio 14.6 RATIO (10-20); Calcium,Total 9.1 mg/dL (8.5-10.1); Chloride 105 mmol/L (98-107); Creatinine, Serum 1.44 mg/dL (0.70-1.30); EST Glomerular Filtration Rate 51 mL/min (>60); Est Glom Filt Rate - Afr Amer 62 mL/min (>60); Glucose 326 mg/dL (74-106); Sodium Level 138 mmol/L (136-145)
== END | disposition home or self-care (01) ==
LOC: LAB 14:41
PROVIDERS: Family Provider Internal Medicine; PCP Internal Medicine; Referring Provider Physician Assistant Medical; Visit Provider Physician Assistant Medical
DX: I10 Essential (primary) hypertension (principal); I25.5 Ischemic cardiomyopathy
CPT/HCPCS: 36415; 80048

== ENCOUNTER → 2019-04-18 13:54 | Outpatient (CLI) | payer MEDICARE, SELFPAY ==
[2019-04-11 13:28] VITALS: BMI 33.7
--- NOTE | 2019-04-18 13:59 | CDU_ITS ---
Reason For Study: Bilateral carotid bruits Rt. Velocities/BP Lt. Velocities/BP Prox CCA 100.8/17.3 cm/sec. Prox CCA 103.6/17.6 cm/sec. Mid CCA 89.1/14.7 cm/sec. Mid CCA 91.6/13.5 cm/sec. Dist CCA 90.4/12.1 cm/sec. Dist CCA 98.6/15.1 cm/sec. Prox ICA 90/13.3 cm/sec. Prox ICA 112.6/13.8 cm/sec. Mid ICA 79.1/15.2 cm/sec. Mid ICA 81.9/16 cm/sec. Dist ICA 88.2/17 cm/sec. Dist ICA 112/20.6 cm/sec. Rt. ICA/CCA = 1.00. Lt. ICA/CCA = 1.14. Prox ECA 130.2/13.3 cm/sec. Prox ECA 149.9/11.6 cm/sec. Rt. Vert. 50.9/10.2 cm/sec. Lt. Vert. 47.6/14.6 cm/sec. Right Extracranial There is intimal thickening but no significant atherosclerotic plaque noted in the right common carotid artery. There is heterogeneous, irregular atherosclerotic plaque noted in the right internal carotid artery. There is heterogeneous, irregular atherosclerotic plaque noted in the right external carotid artery. Antegrade flow is noted in the right vertebral artery. Left Extracranial There is intimal thickening but no significant atherosclerotic plaque noted in the left common carotid artery. There is heterogeneous, irregular atherosclerotic plaque noted in the left internal carotid artery. There is heterogeneous, irregular atherosclerotic plaque noted in the left external carotid artery. Antegrade flow is noted in the left vertebral artery. Procedure Carotid Duplex [id number]. Exam performed in department. Interpretation Summary Irregular calcific plaque of the distal right common carotid and proximal right internal and external carotid arteries <50% stenosis right internal carotid <50% stenosis right external carotid Irregular calcific plaque distal left common carotid and proximal left internal and external carotid arteries <50% stenosis left internal carotid (likely closer to 50%) <50% stenosis left external carotid Patent, antegrade, < 50% stenosis bilateral vertebrals Ordering Physician: Natasha Rollins Referring Physician: Loree Salazar Performed By: Libby Alvarado RVT
== END ==
PROVIDERS: Family Provider Internal Medicine; PCP Internal Medicine; Referring Provider Physician Assistant Medical; Visit Provider Physician Assistant Medical
DX: R09.89 Other specified symptoms and signs involving the circulatory and respiratory systems (principal); I25.10 Atherosclerotic heart disease of native coronary artery without angina pectoris
CPT/HCPCS: 93880

== ENCOUNTER → 2020-04-07 10:56 | Outpatient (CLI) | payer MEDICARE, SELFPAY ==
[2020-04-07 09:48] VITALS: BMI 33.6
[2020-04-07 12:34] LABS: Absolute Lymphocyte Count 1.39 X10^3/uL (0.83-4.51); Absolute Neutrophil Count 5.1 X10^3/uL (2.0-7.7); Basophil# 0.07 X10^3/uL; Basophil% 0.9 % (0-1); Eosinophil# 0.42 X10^3/uL; Eosinophils% 5.5 % (0-5); Hematocrit 43.3 % (40-54); Hemoglobin 13.3 g/dL (13.0-16.5); Lymphocyte # 1.39 X10^3/ul (4.0); Lymphocyte % 18.1 % (19-41); Mean Corp Hgb Conc 30.7 g/dL (32-36); Mean Corpuscular Hgb 27.8 pg (27.0-32.0); Mean Corpuscular Volume 90.6 fL (80-94); Mean Platelet Vol. 10.3 fl (6.2-12.0); Monocyte# 0.61 X10^3/uL; Monocyte% 7.9 % (0-10); NRBC Flagged by Analyzer 0 % (0-5); Neutrophil # 5.14 X10^3/uL (2.7-7.7); Neutrophil % 66.7 % (47-70); Platelet Count 178 K/mm3 (150-450); RBC Distribution Width CV 14.9 % (11.6-14.6); RBC Distribution Width SD 50.1 fl (35.1-43.9); Red Blood Count 4.78 M/mm3 (4.6-6.2); White Blood Count 7.7 K/mm3 (4.4-11.0)
[2020-04-07 13:52] LABS: ALB/GLOB Ratio 0.9 RATIO (0.9-2.4); AST(SGOT) 13 U/L (15-37); Alanine Aminotransfer ALT/SGPT 19 U/L (16-61); Albumin, Serum 3.7 g/dL (3.2-5.0); Alkaline Phosphatase 79 U/L (45-117); Anion Gap 7 (5-15); BUN 17 mg/dL (7-18); Calcium,Total 9.5 mg/dL (8.5-10.1); Chloride 109 mmol/L (98-107); Cholesterol 126 mg/dL (200); Creatinine, Serum 1.21 mg/dL (0.70-1.30); EST Glomerular Filtration Rate 62 mL/min (>60); Est Glom Filt Rate - Afr Amer 75 mL/min (>60); Globulin 4.2 g/dL (2.2-4.2); Glucose 112 mg/dL (74-106); High Density Lipoprotein 32 mg/dL; PSA,Total - Annual Screen 0.83 ng/mL (0.00-4.00); Protein, Total 7.9 g/dL (6.4-8.2); Sodium Level 142 mmol/L (136-145); Thyroid Stim Hormone (TSH) 0.97 uIU/mL (0.358-3.74); Triglycerides 122 mg/dL; Very Low Density Lipoprotein 24 mg/dL (5-40)
== END ==
PROVIDERS: PCP Internal Medicine; Visit Provider Internal Medicine
DX: E11.9 Type 2 diabetes mellitus without complications (principal); E78.5 Hyperlipidemia, unspecified; I10 Essential (primary) hypertension; I25.810 Atherosclerosis of coronary artery bypass graft(s) without angina pectoris; N13.8 Other obstructive and reflux uropathy; N40.1 Benign prostatic hyperplasia with lower urinary tract symptoms; Z12.5 Encounter for screening for malignant neoplasm of prostate
CPT/HCPCS: 36415; 80053; 80061; 84153; 84443; 85025; G0103

== ENCOUNTER → 2020-05-29 10:10 | Outpatient (CLI) | payer MEDICARE, SELFPAY ==
[2020-05-14 15:23] VITALS: BMI 33.0
--- NOTE | 2020-05-29 10:24 | STEWCON_ITS ---
Reason For Study: CAD; Chest Pain Stress Results Protocol: Dobutamine Stress Echo With Definity Maximum Predicted HR: 146 bpm Target HR: 124 bpm % Maximum Predicted HR: 73 % Heart Stage Duration Rate BP Comment (mm:ss) (bpm) Baseline 56 150/73No Chest Pain; 5 ML Diluted Definity DSE 10 MCG 3:20 64 161/70No Chest Pain DSE 20 MCG 3:15 71 179/85No Chest Pain DSE 30 MCG 3:10 98 186/94No Chest Pain; Atropine 0.25 MG Given 1 Min 15 Seconds Into Stage DSE 40 No Chest Pain; Atropine 0.5 MG Given 1:00 Minute Into Stage and MCG 2:48 106 197/97Atropine 0.25 MG Given at 2 Minutes Into Stage Recovery 74 148/78No Chest Pain Stress Duration: 12:33 mm:ss Maximum Stress HR: 106 bpm METS: 1 Baseline Echocardiogram Findings Stress Echo Wall motion Data Resting WM Intermediate WM Stress WM Doppler Measurements & Calculations MV V2 max: 164.4 cm/sec MV max P.8 mmHg MV V2 mean: 94.5 cm/sec MV mean P.2 mmHg MV V2 VTI: 51.5 cm Interpretation Summary Dobutamine stress echocardiogram. 75-year-old man with a history of coronary artery disease status post previous coronary artery bypass surgery. Stress protocol: Resting EKG demonstrates sinus rhythm with a rate of 58 bpm and a left bundle branch block pattern. Resting blood pressure is 150/73 mmHg. Dobutamine was infused starting at 10 mcg/kg/min increasing to a peak of 40 mcg/kg/min. The patient was given a total of 1 mg of atropine and 0.25 mg aliquots. The maximum heart rate was 106 bpm which was 73% of max impacted heart rate. Occasional premature ventricular complexes were noted. Patient maintained sinus rhythm with left bundle branch block changes noted. The above were not indicative of ischemia. The peak blood pressure was 197/97 mmHg. Stress echocardiographic images. Stress echocardiographic images were obtained at rest with Definity enhancement demonstrating evidence of paradoxical septal motion suggestive of left bundle branch block pattern. There is hypokinesis of the anterior septal wall also noted. The estimated global ejection fraction was approximately 45%. At a low dose and peak dose there was improvement in the left ventricular function especially involving the inferior septal wall, mid inferior wall, and lateral wall. The anterior wall remained hypokinetic. A previous infarct of the left bundle branch block pattern could account for the above. The peak ejection fraction was approximately 50%. Septal wall motion abnormalities could not be discerned due to the left bundle branch block pattern. Conclusion: Inconclusive dobutamine stress echocardiogram due to poor image quality as well as left bundle branch block pattern. Overall improvement in left ventricular function with dobutamine dosing. Ordering Physician: Simon Ibarra Referring Physician: German Pettit Performed By: Vijaya Ibarra, GENE, RVT
[2020-05-29 11:51] LABS: Anion Gap 4 (5-15); BUN 16 mg/dL (7-18); BUN/Creat Ratio 12.5 RATIO (10-20); Calcium,Total 9.3 mg/dL (8.5-10.1); Chloride 106 mmol/L (98-107); Creatinine, Serum 1.28 mg/dL (0.70-1.30); EST Glomerular Filtration Rate 58 mL/min (>60); Est Glom Filt Rate - Afr Amer 71 mL/min (>60); Glucose 131 mg/dL (74-106); Potassium 4.1 mmol/L (3.5-5.1); Sodium Level 139 mmol/L (136-145)
== END ==
PROVIDERS: PCP Internal Medicine; Referring Provider Nurse Practitioner Family; Visit Provider Nurse Practitioner Family
DX: I25.810 Atherosclerosis of coronary artery bypass graft(s) without angina pectoris (principal); I25.5 Ischemic cardiomyopathy; I50.22 Chronic systolic (congestive) heart failure; R07.9 Chest pain, unspecified; I25.10 Atherosclerotic heart disease of native coronary artery without angina pectoris; I44.7 Left bundle-branch block, unspecified; I48.0 Paroxysmal atrial fibrillation; E78.00 Pure hypercholesterolemia, unspecified; I10 Essential (primary) hypertension; Z79.899 Other long term (current) drug therapy; Z95.1 Presence of aortocoronary bypass graft; Z95.5 Presence of coronary angioplasty implant and graft
CPT/HCPCS: 36415; 80048; 93017; 93350; J7040; Q9957; A4216; C8928

== ENCOUNTER → 2020-12-17 10:19 | Outpatient (CLI) | payer MEDICARE, SELFPAY ==
[2020-11-18 12:48] VITALS: BMI 34.6
== END ==
PROVIDERS: PCP Internal Medicine; Referring Provider Nurse Practitioner Family; Visit Provider Nurse Practitioner Family
DX: R00.0 Tachycardia, unspecified (principal); I25.810 Atherosclerosis of coronary artery bypass graft(s) without angina pectoris; I25.5 Ischemic cardiomyopathy; I47.1 Supraventricular tachycardia; I48.0 Paroxysmal atrial fibrillation; I44.7 Left bundle-branch block, unspecified; I50.22 Chronic systolic (congestive) heart failure
CPT/HCPCS: 93225; 93226

== ENCOUNTER → 2021-01-06 11:56 | Outpatient (CLI) | payer MEDICARE, SELFPAY ==
[2021-01-06 10:57] VITALS: BMI 34.6
--- NOTE | 2021-01-06 12:00 | RAD_ITS ---
STUDY: X-RAY CHEST REASON FOR EXAM: Male, 75 years old. Preoperative evaluation. TECHNIQUE: Frontal and lateral views of the chest. COMPARISON: None. FINDINGS: Mild diffuse interstitial pattern with scattered healed granulomatous calcifications. Pleural thickening and pleural scarring at the left base. Sternotomy wires with cardiomegaly and valve replacement. Normal mediastinum and lexii. Normal visualized pulmonary arteries. Aortic tortuosity with calcification. Diffuse thoracic spondylosis. Normal visualized ribs, clavicles, and shoulders. There is no demonstrated abnormality of the visualized soft tissue structures of the upper abdomen. RAD/Chest PA and Lateral IMPRESSION: Cardiomegaly with mild diffuse interstitial pattern and scarring at the left base. No active or acute cardiopulmonary disease. Electronically Signed: Jose Mackay MD at 12:46 EDT , Service support ,
[2021-01-06 14:27] LABS: Anion Gap 5 (5-15); BUN 17 mg/dL (7-18); BUN/Creat Ratio 12.3 RATIO (10-20); Calcium,Total 9.1 mg/dL (8.5-10.1); Chloride 103 mmol/L (98-107); Creatinine, Serum 1.38 mg/dL (0.70-1.30); EST Glomerular Filtration Rate 53 mL/min (>60); Est Glom Filt Rate - Afr Amer 65 mL/min (>60); Glucose 96 mg/dL (74-106); Potassium 3.8 mmol/L (3.5-5.1); Sodium Level 141 mmol/L (136-145)
== END ==
PROVIDERS: PCP Internal Medicine; Referring Provider Nurse Practitioner Family; Visit Provider Nurse Practitioner Family
DX: I48.0 Paroxysmal atrial fibrillation (principal); I11.0 Hypertensive heart disease with heart failure; I50.22 Chronic systolic (congestive) heart failure; I25.5 Ischemic cardiomyopathy; Z98.890 Other specified postprocedural states
CPT/HCPCS: 36415; 71046; 80048

== ENCOUNTER → 2021-01-12 11:22 | Outpatient (CLI) | payer MEDICARE, SELFPAY ==
[2021-01-12 10:01] VITALS: BMI 30.7
[2021-01-12 12:37] LABS: Anion Gap 4 (5-15); BUN 20 mg/dL (7-18); BUN/Creat Ratio 14.7 RATIO (10-20); Calcium,Total 9.3 mg/dL (8.5-10.1); Chloride 106 mmol/L (98-107); Creatinine, Serum 1.36 mg/dL (0.70-1.30); EST Glomerular Filtration Rate 54 mL/min (>60); Est Glom Filt Rate - Afr Amer 66 mL/min (>60); Glucose 116 mg/dL (74-106); Magnesium 2.5 mg/dL (1.6-2.6); Potassium 4.1 mmol/L (3.5-5.1); Sodium Level 139 mmol/L (136-145)
[2021-01-12 12:45] LABS: Vitamin D,25 Hydroxy 65.5 ng/mL
== END ==
PROVIDERS: PCP Internal Medicine; Referring Provider Internal Medicine; Visit Provider Internal Medicine
DX: E87.6 Hypokalemia (principal); R00.0 Tachycardia, unspecified; E55.9 Vitamin D deficiency, unspecified
CPT/HCPCS: 36415; 80048; 82306; 83735

== ENCOUNTER 2021-01-14 10:53 | Day surgery (SDC) | payer MEDICARE, SELFPAY ==
[2021-01-06 10:57] VITALS: BMI 34.6
[2021-01-13 08:57] VITALS: BMI 34.1
--- NOTE | 2021-01-14 12:29 | PCM.OP.PRO ---
Assessment & Plan Assessment/Plan (1) Paroxysmal atrial fibrillation: Procedure Report Date of Procedure: 01/14/21 DC cardioversion The patient was brought to the cardiac catheterization lab in the postabsorptive nonsedated state. The patient was noted to be in atrial fibrillation flutter with a rapid ventricular response rate and symptomatic. Patient has been therapeutically anticoagulated for at least 3 weeks. The patient was evaluated by Dr. Magaña of the critical care division. Informed consent was obtained. Anterior-posterior pads were applied. The patient was administered 6 mg of intravenous etomidate. 200 J of biphasic energy were applied with prompt reversal to sinus rhythm. Post operative EKG demonstrated and confirmed sinus rhythm with a left bundle branch block. Conclusion: Successful DC cardioversion to sinus rhythm. Continue current medical therapy Follow-up protocol in my office.
--- NOTE | 2021-01-14 13:33 | PRO.PCM_ITS ---
Assessment & Plan Assessment/Plan (1) H/O coronary artery bypass surgery: (2) Ischemic cardiomyopathy: (3) Paroxysmal atrial fibrillation: (4) Chronic systolic (congestive) heart failure: Procedure Report Date of Procedure: 01/14/21 CONSCIOUS SEDATION REPORT BRIEF HISTORY OF PRESENT ILLNESS: The patient is a 75-year-old male who presented to [facility] for an elective outpatient cardioversion due to underlying atrial fibrillation. The patient reports no PO intake since midnight, but is currently therapeutic on anticoagulation. The patient does not have a history of obstructive sleep apnea. The patient reports no history of smoking and COPD. The patient denies any recent constitutional symptoms such as fevers, chills, nausea or vomiting. The patient denies previous applicable anesthetic complications. Patient's last known ejection fraction is 45%. Patient's last cardioversion was completed using etomidate and patient tolerated well without complications. PHYSICAL EXAMINATION: VITAL SIGNS: Reviewed and were acceptable. GENERAL: The patient is a male, in no apparent distress, speaking in full sentences. HEENT: Normocephalic, atraumatic. Mucous membranes are moist and pink. Good mouth opening noted. Trachea is midline. Good neck mobility. MP III CHEST: S1, S2 irregularly irregular. No murmurs, rubs or gallops were noted. LUNGS: Clear to auscultation bilaterally without appreciable wheezes, rales or rhonchi. ABDOMEN: Soft, nontender, nondistended. Positive bowel sounds. EXTREMITIES: There is no clubbing, cyanosis or edema. ASA Class: II DESCRIPTION OF PROCEDURE: After confirmation of informed consent, the patient's anesthesia plan was reviewed in detail. Etomidate was chosen. Risks and benefits were reviewed and the patient agreed to proceed. At 12:15 PM, the patient was given 4 mg of etomidate. The patient required a total of 6 mg of etomidate throughout the procedure to achieve appropriate sedation. The patient achieved an appropriate level of sedation and received 1 attempt synchronized cardioversion, at [address] Pettit at the bedside. This was successful in achieving normal sinus rhythm. The patient was monitored until 12:27 PM, at which time the patient reached their baseline mental status and function. The patient tolerated the procedure well. COMPLICATIONS: None ESTIMATED BLOOD LOSS: None RECOMMENDATIONS: Okay to recover in usual fashion. Procedures Pulmonary 9xxxx: [id number] Con Sedation
== END 2021-01-14 13:26 | disposition home or self-care (01) ==
LOC: CLSP 10:55
PROVIDERS: PCP Internal Medicine; Referring Provider Internal Medicine Cardiovascular Disease; Visit Provider Internal Medicine Cardiovascular Disease
DX: I48.0 Paroxysmal atrial fibrillation (principal); I48.92 Unspecified atrial flutter; I44.7 Left bundle-branch block, unspecified; I50.22 Chronic systolic (congestive) heart failure; I25.5 Ischemic cardiomyopathy; I25.10 Atherosclerotic heart disease of native coronary artery without angina pectoris; Z95.1 Presence of aortocoronary bypass graft; Z79.899 Other long term (current) drug therapy; Z79.01 Long term (current) use of anticoagulants; E78.5 Hyperlipidemia, unspecified; E66.9 Obesity, unspecified; I11.0 Hypertensive heart disease with heart failure
CPT/HCPCS: 92960; 93005; J7040

== ENCOUNTER 2021-08-19 08:11 | Outpatient (CLI) | payer MEDICARE, SELFPAY ==
[2021-08-19 12:22] LABS: Absolute Lymphocyte Count 1.93 X10^3/uL (0.83-4.51); Absolute Neutrophil Count 4.6 X10^3/uL (2.0-7.7); Basophil# 0.08 X10^3/uL; Eosinophil# 0.34 X10^3/uL; Eosinophils% 4.4 % (0-5); Hematocrit 47.2 % (40-54); Hemoglobin 15.2 g/dL (13.0-16.5); Lymphocyte # 1.93 X10^3/ul (0.83-4.51); Mean Corp Hgb Conc 32.2 g/dL (32-36); Mean Corpuscular Volume 90.1 fL (80-94); Mean Platelet Vol. 10.5 fl (6.2-12.0); Monocyte% 9.1 % (0-10); NRBC Flagged by Analyzer 0 % (0-5); Neutrophil % 59.7 % (47-70); Platelet Count 192 K/mm3 (150-450); RBC Distribution Width CV 14.6 % (11.6-14.6); RBC Distribution Width SD 47.8 fl (35.1-43.9); Red Blood Count 5.24 M/mm3 (4.6-6.2); White Blood Count 7.7 K/mm3 (4.4-11.0)
[2021-08-19 12:41] LABS: Hemoglobin A1c 6.5 % (3.8-5.6)
[2021-08-19 12:56] LABS: ALB/GLOB Ratio 0.8 RATIO (0.9-2.4); AST(SGOT) 23 U/L (15-37); Alanine Aminotransfer ALT/SGPT 38 U/L (16-61); Albumin, Serum 3.7 g/dL (3.2-5.0); Alkaline Phosphatase 92 U/L (45-117); Anion Gap 7 (5-15); BUN 16 mg/dL (7-18); BUN/Creat Ratio 12.4 RATIO (10-20); Calcium,Total 9.3 mg/dL (8.5-10.1); Chloride 101 mmol/L (98-107); Cholesterol 151 mg/dL (200); Creatinine, Serum 1.29 mg/dL (0.70-1.30); EST Glomerular Filtration Rate 58 mL/min (>60); Est Glom Filt Rate - Afr Amer 70 mL/min (>60); Globulin 4.4 g/dL (2.2-4.2); Glucose 143 mg/dL (74-106); High Density Lipoprotein 29 mg/dL; Potassium 4.3 mmol/L (3.5-5.1); Protein, Total 8.1 g/dL (6.4-8.2); Sodium Level 138 mmol/L (136-145); Triglycerides 217 mg/dL; Very Low Density Lipoprotein 43 mg/dL (5-40)
[2021-08-19 13:08] LABS: Vitamin D,25 Hydroxy 47.6 ng/mL
== END 2021-08-19 23:59 | disposition home or self-care (01) ==
LOC: BIMLAB 08:12
PROVIDERS: PCP Internal Medicine; Referring Provider Internal Medicine; Visit Provider Internal Medicine
DX: I25.10 Atherosclerotic heart disease of native coronary artery without angina pectoris (principal); I50.22 Chronic systolic (congestive) heart failure; I11.0 Hypertensive heart disease with heart failure; E11.9 Type 2 diabetes mellitus without complications; E55.9 Vitamin D deficiency, unspecified; E87.6 Hypokalemia; R00.0 Tachycardia, unspecified; E78.00 Pure hypercholesterolemia, unspecified; Z95.1 Presence of aortocoronary bypass graft; Z12.5 Encounter for screening for malignant neoplasm of prostate
CPT/HCPCS: 36415; 80053; 80061; 82306; 83036; 84153; 85025; G0103

== ENCOUNTER → 2021-12-11 | Outpatient (CLI) | payer MEDICARE, SELFPAY ==
--- NOTE | 2021-12-11 12:45 | ECHOCS_ITS ---
Reason For Study: CAD/ASHD Procedure This was a 2D Doppler, Color Flow transthoracic echocardiogram. The study was technically difficult. Contrast injection was performed. Exam performed in department. Left Ventricle Normal LV size. The estimated ejection fraction is 40 %. Mild to moderate segmental systolic dysfunction (see wall motion). [place] : Hypokinetic. Mid-anteroseptal : Hypokinetic. Mid-Anterior : Hypokinetic. Right Ventricle Normal RV size. Normal systolic function. Atria Normal left atrium. Normal right atrium. Mitral Valve There is mild to moderate mitral annular calcification. Mild-Moderate (1-2+) eccentric mitral valve insufficiency. Tricuspid Valve Normal tricuspid valve. Unable to estimate RV systolic pressure due to insufficient tricuspid regurgitant envelope. Aortic Valve Normal aortic valve. Trisinus/trileaflet aortic valve. Pulmonic Valve Normal pulmonic valve. Trivial pulmonic valve insufficiency. Great Vessels Normal aortic root. The pulmonary artery is normal size. Normal inferior vena cava. Pericardium/Pleural No pericardial effusion. Medication 20 gauge I.V. with prn adaptor inserted into right arm. Diluted definity 1ml given slow IV push to enhance endocardial definition. MMode/2D Measurements & Calculations LVIDd: 5.5 cm IVSd: 1.3 cm Ao root diam: 3.0 cm LVIDs: 3.9 cm LVPWd: 1.2 cm LA dimension: 4.8 cm RVDd: 3.8 cm FS: 28.3 % LAV(MOD-bp): 59.2 ml LA A4 area: 18.5 cm2 RA A4 area: 16.1 cm2 LAV(MOD-bp) Indexed: 28.4 ml/m2 LAV(MOD-sp2): 60.8 ml LAV(MOD-sp4): 54.0 ml Time Measurements MV dec time: 0.27 sec Doppler Measurements & Calculations MV E max jose: 129.8 cm/sec MV V2 max: 138.5 cm/sec MV P1/2t max jose: 138.0 cm/sec MV A max jose: 81.5 cm/sec MV max P.7 mmHg MV P1/2t: 90.9 msec MV E/A: 1.6 MV V2 mean: 66.3 cm/sec MV dec slope: 444.5 cm/sec2 MV mean P.2 mmHg MV V2 VTI: 45.3 cm MVA(P1/2t): 2.4 cm2 Ao V2 max: 163.8 cm/sec LV V1 max: 106.4 cm/sec PI dec slope: 288.9 cm/sec2 Ao max P.7 mmHg LV V1 max P.5 mmHg Ao V2 mean: 113.4 cm/sec LV V1 mean P.6 mmHg Ao mean P.9 mmHg LV V1 mean: 74.9 cm/sec Ao V2 VTI: 36.9 cm LV V1 VTI: 23.3 cm ECHO/Echo Complete W/ Contrast Interpretation Summary Normal LV size. The estimated ejection fraction is 40 %. Mild to moderate segmental systolic dysfunction (see wall motion). Contrast injection was performed. Compared to previous study, the left ventricu lar systolic function is the same.. Ordering Physician: German Pettit Referring Physician: Loree Salazar M.D. Performed By: Blair Escamilla RCS
== END | disposition home or self-care (01) ==
LOC: CVS 12:44
PROVIDERS: PCP Internal Medicine; Referring Provider Internal Medicine Cardiovascular Disease; Visit Provider Internal Medicine Cardiovascular Disease
DX: I25.10 Atherosclerotic heart disease of native coronary artery without angina pectoris (principal)
CPT/HCPCS: 93306; Q9957; A4216; C8929

== ENCOUNTER → 2022-02-10 | Outpatient (CLI) | payer MEDICARE, SELFPAY ==
[2022-02-10 15:05] LABS: Hematocrit 44.6 % (40-54); Hemoglobin 15.1 g/dL (13.0-16.5); Mean Corp Hgb Conc 33.9 g/dL (32-36); Mean Corpuscular Hgb 30.8 pg (27.0-32.0); Mean Corpuscular Volume 90.8 fL (80-94); Mean Platelet Vol. 10.5 fl (6.2-12.0); Platelet Count 207 K/mm3 (150-450); RBC Distribution Width CV 14.7 % (11.6-14.6); RBC Distribution Width SD 48.9 fl (35.1-43.9); Red Blood Count 4.91 M/mm3 (4.6-6.2); White Blood Count 8.6 K/mm3 (4.4-11.0)
[2022-02-10 15:28] LABS: Anion Gap 6 (5-15); BUN 20 mg/dL (7-18); BUN/Creat Ratio 15.4 RATIO (10-20); Calcium,Total 9.2 mg/dL (8.5-10.1); Chloride 102 mmol/L (98-107); EST Glomerular Filtration Rate 57 mL/min (>60); Est Glom Filt Rate - Afr Amer 69 mL/min (>60); Glucose 146 mg/dL (74-106); Potassium 4.1 mmol/L (3.5-5.1); Sodium Level 139 mmol/L (136-145)
== END | disposition home or self-care (01) ==
LOC: LAB 13:50
PROVIDERS: PCP Internal Medicine; Referring Provider Nurse Practitioner Gerontology; Visit Provider Nurse Practitioner Gerontology
DX: I50.22 Chronic systolic (congestive) heart failure (principal); I48.0 Paroxysmal atrial fibrillation; I25.5 Ischemic cardiomyopathy; E87.6 Hypokalemia; Z79.01 Long term (current) use of anticoagulants
CPT/HCPCS: 36415; 80048; 85027

== ENCOUNTER 2022-07-21 14:43 | Emergency (ER) | payer MEDICARE, SELFPAY ==
[2022-07-21] VITALS (9 sets, daily range): BP systolic 75–160; BP diastolic 53–96; PULSE 53–122; RESP 16–20; TEMP 36.4; O2SAT 90–100; BMI 33.0
--- NOTE | 2022-07-21 15:11 | EKG12_ITS ---
Test Reason : Blood Pressure : / mmHG Vent. Rate : 057 BPM Atrial Rate : 057 BPM P-R Int : 182 ms QRS Dur : 186 ms QT Int : 536 ms P-R-T Axes : 000 021 186 degrees QTc Int : 521 ms Sinus bradycardia Left bundle branch block Abnormal ECG Confirmed by MCKENZIE CAMACHO, OUMAR ([id number]), offline editor JUAN CARLOS VALDOVINOS ([id number]) on 07/23/2022 12:36:10 PM Referred By: Confirmed By:OUMAR RINCON MD
--- NOTE | 2022-07-21 15:13 | EDS_ITS ---
HPI History of Present Illness Chief Complaint: Palpitations Narrative Narrative: 77-year-old male past medical history of atrial fibrillation on Eliquis, hypertension, hyperlipidemia presents from his primary care provider's office with rapid heart rate. 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 He states that they told him that he see his primary care provider, which she did today. He complains of increasing shortness of breath and 10 pound weight gain over the last 3 weeks. EKG at the primary care physician's office revealed that he was in atrial flutter at 120 to 130 bpm. He denies any chest pain but does endorse dyspnea on exertion and the weight gain. He states he has not missed a dose of his anticoagulant. He and his do say that he has been cardioverted twice, the last time being in December 2020. This was done as an outpatient by cardiology. [facility] Medical History Acute diastolic (congestive) heart failure Atherosclerosis of coronary artery bypass graft without angina pectoris Atherosclerotic heart disease of [place] coronary artery without angina pectoris Chronic systolic (congestive) heart failure Essential (primary) hypertension History of non-ST elevation myocardial infarction (NSTEMI) (10/2015) Hyperlipidemia Ischemic cardiomyopathy Left bundle branch block Lower GI bleed Nonrheumatic mitral (valve) insufficiency Obesity Paroxysmal atrial fibrillation Paroxysmal supraventricular tachycardia Tachycardia Type 2 diabetes mellitus Home Medications lancets 33 gauge (BD Ultra Fine Lancets) #100 ea 05/02/20 [Rx Last Taken Unknown] lancets 30 gauge (BD Microtainer Lancet) #100 ea 05/07/20 [Rx Last Taken Unknown] apixaban 5 mg tablet (Eliquis) 5 mg PO BID #180 tabs 11/10/21 [Rx Last Taken Unknown] hydrochlorothiazide 25 mg tablet 25 mg PO DAILY #90 tabs 11/10/21 [Rx Last Taken Unknown] nitroglycerin 0.4 mg sublingual tablet 0.4 mg sublingual Q5-15M PRN Cardiac/Chest Pain #25 tabs 11/10/21 [Rx Last Taken Unknown] metoprolol succinate 50 mg tablet,extended release 24 hr [address] Wilver requests this instead of 25 tid. #180 tabs 07/07/22 [Rx Last Taken Unknown] Allergy/AdvReac Type Severity Reaction Status Date / Time Penicillins Allergy Severe Hives Verified 07/21/22 14:47 valsartan Allergy Severe Anaphylaxis Verified 07/21/22 14:47 warfarin [From Coumadin] Allergy Severe purple toe Verified 07/21/22 14:47 syndrome amiodarone Allergy Intermediate Shortness Verified 07/21/22 14:47 of breath carvedilol AdvReac Severe Dark Verified 07/21/22 14:47 urine, SOB, productive cough diazepam AdvReac Severe Confusion Verified 07/21/22 14:47 hydrocodone AdvReac Severe Hallucintat Verified 07/21/22 14:47 ions lisinopril AdvReac Intermediate Cough Verified 07/21/22 14:47 pantoprazole [From Protonix] AdvReac Intermediate Nausea Verified 07/21/22 14:47 propylene glycol AdvReac Intermediate Vomiting Verified 07/21/22 14:47 ticagrelor [From Brilinta] AdvReac Intermediate Shortness Verified 07/21/22 14:47 of Breath tramadol AdvReac Intermediate constipation, Verified 07/21/22 14:47 decreased urination diltiazem AdvReac Mild sleep Verified 07/21/22 14:47 issues, nausea, lower extremity edema Mhfkcln-[id number]-GpW Reductase AdvReac myalgia Verified 07/21/22 14:47 Inhibitor [Eamlpxt-Bnu-Gpn Reductase Inhibitor] Family History Father CAD (coronary artery disease) Hypertension Mother CAD (coronary artery disease) Brother Diabetes CAD (coronary artery disease) Colon cancer Sister Diabetes Surgical History H/O coronary artery bypass surgery (02/04/14) History of cardioversion (01/14/21) History of colonoscopy History of coronary artery stent placement (03/23/16) History of left heart catheterization (12/09/15) History of mitral valve repair (02/04/14) History of rectal abscess Social History Smoking Status: Former smoker how long ago did patient quit smokin years ago alcohol intake: never substance use type: does not use caffeine: No what type of physical activity do you participate in: none ROS ROS ED ROS Narrative Constitutional: No fever, no chills. 10 pound weight gain in 3 weeks. HEENT: No sore throat. No neck pain. No loss of vision. No rhinorrhea. Cardiovascular: No chest pain. No palpitations. Increasing bilateral pedal edema. Respiratory: No cough, positive dyspnea on exertion and shortness of breath. Abdominal: No abdominal pain. No nausea. No vomiting. Genitourinary: No dysuria. No hematuria. Musculoskeletal: No myalgias. No arthralgias. Neurologic: No headaches. No dizziness. No lightheadedness. Skin: No rash. No change in color. Psychiatric: No depression. No anxiety. EXAM Physical Exam Narrative Exam Narrative: Afebrile. Vital signs noted. HEENT: Normocephalic. Atraumatic. PERRL, EOMI. Neck soft and supple. No point tenderness or step off. Cardiovascular: Irregularly irregular tachycardia. No murmurs, rubs, or gallops appreciated. Respiratory: No tachypnea. Lungs clear to auscultation bilaterally. Gastrointestinal: Abdomen soft, nontender, with normoactive bowel sounds. No rebound or guarding. Neurological: Awake. Alert. Nonfocal, nonlateralizing. Skin: No rash. Normal color. No pallor. Musculoskeletal: Bilateral symmetric pedal edema. Full range of motion extremities. Const Vital Signs: 07/21/22 14:44 07/21/22 15:17 07/21/22 15:17 Temperature 97.5 F L Temperature Source Temporal Pulse Rate 122 H 117 H Pulse Rate [1 (Initial Baseline)] Pulse Rate [2] Pulse Rate [4] Pulse Rate [5] Respiratory Rate 18 18 Respiratory Rate [1 (Initial Baseline)] Respiratory Rate [2] Respiratory Rate [4] Respiratory Rate [5] Blood Pressure 160/89 H Blood Pressure [1 (Initial Baseline)] Blood Pressure [2] Blood Pressure [3] Blood Pressure [4] Blood Pressure [5] Blood Pressure Mean 112 Pulse Ox 98 95 95 Oxygen Delivery Method Room Air Room Air Room Air Oxygen Delivery Method [1 (Initial Baseline)] Oxygen Delivery Method [2] Oxygen Delivery Method [3] Oxygen Delivery Method [4] Oxygen Delivery Method [5] Oxygen Flow Rate (L/min) Oxygen Flow Rate (L/min) [1 (Initial Baseline)] Oxygen Flow Rate (L/min) [2] Oxygen Flow Rate (L/min) [3] Oxygen Flow Rate (L/min) [4] Oxygen Flow Rate (L/min) [5] 07/21/22 16:41 07/21/22 16:42 07/21/22 17:02 Temperature Temperature Source Pulse Rate 117 H Pulse Rate [1 (Initial Baseline)] 116 H Pulse Rate [2] 57 L Pulse Rate [4] 53 L Pulse Rate [5] 54 L Respiratory Rate 20 H Respiratory Rate [1 (Initial Baseline)] 16 Respiratory Rate [2] 18 Respiratory Rate [4] 18 Respiratory Rate [5] 18 Blood Pressure 115/79 Blood Pressure [1 (Initial Baseline)] 130/96 H Blood Pressure [2] 75/53 L Blood Pressure [3] 75/64 L Blood Pressure [4] 98/54 L Blood Pressure [5] 101/56 L Blood Pressure Mean Pulse Ox 98 Oxygen Delivery Method Nasal Cannula Non-Rebreather Oxygen Delivery Method [1 (Initial Baseline)] Nasal Cannula Oxygen Delivery Method [2] Non-Rebreather Oxygen Delivery Method [3] Non-Rebreather Oxygen Delivery Method [4] Non-Rebreather Oxygen Delivery Method [5] Non-Rebreather Oxygen Flow Rate (L/min) 2 15 Oxygen Flow Rate (L/min) [1 (Initial Baseline)] 2 Oxygen Flow Rate (L/min) [2] 15 Oxygen Flow Rate (L/min) [3] 15 Oxygen Flow Rate (L/min) [4] 15 Oxygen Flow Rate (L/min) [5] 15 07/21/22 17:07 07/21/22 17:10 07/21/22 17:12 Temperature Temperature Source Pulse Rate Pulse Rate [1 (Initial Baseline)] Pulse Rate [2] Pulse Rate [4] Pulse Rate [5] Respiratory Rate Respiratory Rate [1 (Initial Baseline)] Respiratory Rate [2] Respiratory Rate [4] Respiratory Rate [5] Blood Pressure Blood Pressure [1 (Initial Baseline)] Blood Pressure [2] Blood Pressure [3] Blood Pressure [4] Blood Pressure [5] Blood Pressure Mean Pulse Ox 96 Oxygen Delivery Method Room Air Room Air Room Air Oxygen Delivery Method [1 (Initial Baseline)] Oxygen Delivery Method [2] Oxygen Delivery Method [3] Oxygen Delivery Method [4] Oxygen Delivery Method [5] Oxygen Flow Rate (L/min) Oxygen Flow Rate (L/min) [1 (Initial Baseline)] Oxygen Flow Rate (L/min) [2] Oxygen Flow Rate (L/min) [3] Oxygen Flow Rate (L/min) [4] Oxygen Flow Rate (L/min) [5] MDM MDM MDM Narrative Medical decision making narrative: I do feel that the patient is most likely in atrial fibrillation with rapid ventricular response causing CHF.. EKG was obtained and interpreted by myself which demonstrates atrial fibrillation/flutter at 121 bpm. No STEMI. There is a left bundle branch block/wide-complex, but this was reviewed on previous EKG reviewed in his chart in 2021. Comprehensive work-up will be pursued. CBC, BMP, troponin, and BNP will be obtained along with chest x-ray. He will be administered Lopressor for rate reduction. I will discuss patient with cardiology to see if cardioversion would be indicated, but if he is in CHF he may require admission regardless. I reviewed the patient's laboratory work. He has a normal white count of 7.8, hemoglobin normal at 13.9, platelet count normal at 225. BMP shows a glucose elevated at 175 but a normal anion gap of 8. He has a BUN of 21 with a creatinine of 1.58 consistent with chronic kidney injury. His high-sensitivity troponin is 14. BNP is normal at 80. Chest x-ray in 1 view interpreted by myself shows no evidence of florid CHF, no pneumonia or pneumothorax. I reviewed the radiology report which shows mild congestion in the perihilar area. I do think this is from his 3 weeks of atrial fibrillation with RVR. After Lopressor, his heart rate is around 117 bpm and he is still in A-fib with RVR. I discussed the patient with Dr. Pettit. As the patient has not missed his Eliquis dosing in the last 3 weeks, cardiology agrees with cardioversion in the emergency department. Procedure note. A total of 80 mg of propofol was used for adequate sedation. Patient was placed on nasal cannula oxygen and IV fluids running. 1 shock was delivered at 200 J of synchronized cardioversion with resultant heart rate in the 50s to 60s which appears sinus. Second EKG was obtained and interpreted by myself which demonstrates sinus bradycardia at 57 bpm without ectopy or acute ST changes. No STEMI. During the procedure, patient experienced transient hypotension so he was bolused a small amount of fluid, less than 500 mL. He did experience very transient hypoxia with a pulse ox at 88%. Jaw thrust maneuver was performed, then he was placed on a nonrebreather with pulse ox of 100%. Patient tolerated the procedure well. In discussion with cardiology, it was not felt that he has CHF from his atrial fibrillation but he will be given Lasix 40 mg intravenously prior to discharge and he will continue his hydrochlorothiazide. I feel he be discharged safely home to follow-up with cardiology. Return instructions to the emergency department were reviewed. Disposition is discharged home in stable condition. Lab Data Attestation: I reviewed the patient's lab results. Labs: Laboratory Results - last 24 hr 07/21/22 07/21/22 07/21/22 15:17 15:17 15:17 WBC 7.8 RBC 4.84 Hgb 13.9 Hct 45.1 MCV 93.2 MCH 28.7 MCHC 30.8 L RDW Std Deviation 50.2 H RDW Coeff of Melinda 14.8 H Plt Count 225 MPV 10.2 Immature Gran % (Auto) 1.000 H Neut % (Auto) 66.1 Lymph % (Auto) 18.5 L [place] % (Auto) 10.1 H Eos % (Auto) 3.1 Baso % (Auto) 1.2 H Absolute Neuts (auto) 5.2 Absolute Lymphs (auto) 1.45 Nucleated RBC % 0 Sodium 141 Potassium 3.7 Chloride 104 Carbon Dioxide 29.0 Anion Gap 8 BUN 21 H Creatinine 1.58 H Estim Creat Clear Calc 38.48 Est GFR (MDRD) Af Amer 55 L Est GFR (MDRD) Non-Af 46 L BUN/Creatinine Ratio 13.3 Glucose 175 H Calcium 9.4 Troponin I High Sens 14 B-Natriuretic Peptide 80.8 Radiography Diagnostic Testing: Clinical Impression(s) from Imaging Studies Chest X-Ray 07/21/22 16:00 IMPRESSION: 1. Cardiomegaly with evidence of cardiac valvuloplasty. 2. Mild perihilar interstitial prominence. Question vascular congestion. Electronically Signed: Jose Duran DO at 16:22 EST Reading Location ID and State: [facility] / [place] Tel [phone], Service support , Discharge Plan Triage Chief Complaint: Palpitations ED Provider: Nuno Cochran Dx/Rx/DC Orders Clinical Impression: Atrial fibrillation with rapid ventricular response, Encounter for cardioversion procedure, Exertional shortness of breath, Recent weight gain Instructions: ED AFIB, ED Procedural Sedation, (Adult), ED Dyspnea Prescriptions: No Action Eliquis 5 mg tablet 5 mg PO BID Qty: 180 3RF nitroglycerin 0.4 mg tablet, sublingual 0.4 mg SUBLINGUAL Q5-15M PRN (Reason: Cardiac/Chest Pain) Qty: 25 3RF hydrochlorothiazide 25 mg tablet 25 mg PO DAILY Qty: 90 3RF (DME) lancets [BD Ultra Fine Lancets] 33 gauge misc See Rx Instructions .ROUTE .MEDSUPPLY Qty: 100 1RF Rx Instructions: As directed (DME) lancets [BD Microtainer Lancet] 30 gauge misc See Rx Instructions .ROUTE .MEDSUPPLY Qty: 100 0RF Rx Instructions: As directed metoprolol succinate 50 mg tablet extended release 24 hr 50 mg PO BID Qty: 180 3RF Primary Care Provider: Loree Salazar Referrals: German Pettit MD [Med Staff - Active Staff] - As soon as possible Loree Salazar MD [Primary Care Provider] - Disposition Disposition: Home, Self Care
[2022-07-21 15:26] LABS: Absolute Lymphocyte Count 1.45 X10^3/uL (0.83-4.51); Absolute Neutrophil Count 5.2 X10^3/uL (2.0-7.7); Basophil# 0.09 X10^3/uL; Basophil% 1.2 % (0-1); Eosinophil# 0.24 X10^3/uL; Eosinophils% 3.1 % (0-5); Hematocrit 45.1 % (40-54); Hemoglobin 13.9 g/dL (13.0-16.5); Lymphocyte # 1.45 X10^3/ul (0.83-4.51); Lymphocyte % 18.5 % (19-41); Mean Corp Hgb Conc 30.8 g/dL (32-36); Mean Corpuscular Hgb 28.7 pg (27.0-32.0); Mean Corpuscular Volume 93.2 fL (80-94); Mean Platelet Vol. 10.2 fl (6.2-12.0); Monocyte# 0.79 X10^3/uL; Monocyte% 10.1 % (0-10); NRBC Flagged by Analyzer 0 % (0-5); Neutrophil # 5.17 X10^3/uL (2.7-7.7); Neutrophil % 66.1 % (47-70); Platelet Count 225 K/mm3 (150-450); RBC Distribution Width CV 14.8 % (11.6-14.6); RBC Distribution Width SD 50.2 fl (35.1-43.9); Red Blood Count 4.84 M/mm3 (4.6-6.2); White Blood Count 7.8 K/mm3 (4.4-11.0)
[2022-07-21 15:47] LABS: Anion Gap 8 (5-15); BNP,B-Type NATRIURETIC PEPTIDE 80.8 pg/mL (0-100); BUN 21 mg/dL (7-18); BUN/Creat Ratio 13.3 RATIO (10-20); Calcium,Total 9.4 mg/dL (8.5-10.1); Chloride 104 mmol/L (98-107); Creatinine, Serum 1.58 mg/dL (0.70-1.30); EST Glomerular Filtration Rate 46 mL/min (>60); Est Glom Filt Rate - Afr Amer 55 mL/min (>60); Estimated Creatinine Clearance 38.48 ml/min; Glucose 175 mg/dL (74-106); Potassium 3.7 mmol/L (3.5-5.1); Sodium Level 141 mmol/L (136-145); Troponin-I HS 14 pg/mL (3.0-78.0)
[2022-07-21] MEDS: Aspirin 81 MG TAB.CHEW 324 MG PO (15:48)
[2022-07-21] MEDS: Metoprolol Tartrate 5 MG/5 ML Vial IV (15:48)
--- NOTE | 2022-07-21 16:00 | RAD_ITS ---
STUDY: X-RAY CHEST REASON FOR EXAM: Male, 77 years old. Chest pain. Patient having issues with heart rate for 3 weeks. Shortness of breath. History of atrial fibrillation. TECHNIQUE: Single AP portable view of the chest. COMPARISON: None. FINDINGS: Lungs are hypoexpanded. There is minimal perihilar interstitial prominence without consolidation or mass. There is no demonstrated pleural abnormality. Mild cardiomegaly. There is evidence of median sternotomy and cardiac valvuloplasty. Normal mediastinum and lexii. Normal visualized pulmonary arteries. Normal visualized aortic arch and descending thoracic aorta. The thoracic spine is obscured by the mediastinum. There is degenerative osteoarthritis of the bilateral shoulders. There is no demonstrated abnormality of the visualized soft tissue structures of the upper abdomen. RAD/Chest 1 View (Portable) IMPRESSION: 1. Cardiomegaly with evidence of cardiac valvuloplasty. 2. Mild perihilar interstitial prominence. Question vascular congestion. Electronically Signed: Jose Duran DO at 16:22 EST ,
[2022-07-21] MEDS: Furosemide 40 MG/4 ML Vial IV (17:34)
--- NOTE | 2022-07-21 17:35 | EKG12_ITS ---
Test Reason : PALP Blood Pressure : / mmHG Vent. Rate : 121 BPM Atrial Rate : 000 BPM P-R Int : 000 ms QRS Dur : 180 ms QT Int : 402 ms P-R-T Axes : 000 -15 173 degrees QTc Int : 570 ms Sinus tachycardia Left bundle branch block Abnormal ECG Confirmed by WILL CHERRY MD ([id number]), city editor JUAN CARLOS VALDOVINOS ([id number]) on 07/26/2022 11:21:04 AM Referred By: LIMA Confirmed By:WILL CHERRY MD
== END 2022-07-21 18:08 | disposition home or self-care (01) ==
PROVIDERS: Emergency Provider Emergency Medicine; PCP Internal Medicine; Visit Provider Emergency Medicine
DX: I48.91 Unspecified atrial fibrillation (principal); I50.22 Chronic systolic (congestive) heart failure; I11.0 Hypertensive heart disease with heart failure; E11.9 Type 2 diabetes mellitus without complications; R00.2 Palpitations; E78.5 Hyperlipidemia, unspecified; Z87.891 Personal history of nicotine dependence; I25.10 Atherosclerotic heart disease of native coronary artery without angina pectoris; Z79.01 Long term (current) use of anticoagulants
CPT/HCPCS: 71045; 80048; 83880; 84484; 85025; 92960; 93005; 96374; 96375; 99152; 99284; J7030; J7040; A4216; J1940

== ENCOUNTER → 2022-08-02 | Outpatient (CLI) | payer MEDICARE, SELFPAY ==
[2022-08-02 10:36] LABS: Absolute Lymphocyte Count 1.63 X10^3/uL (0.83-4.51); Absolute Neutrophil Count 4.5 X10^3/uL (2.0-7.7); Basophil# 0.06 X10^3/uL; Basophil% 0.8 % (0-1); Eosinophil# 0.33 X10^3/uL; Eosinophils% 4.6 % (0-5); Hematocrit 45.2 % (40-54); Hemoglobin 14.1 g/dL (13.0-16.5); Lymphocyte # 1.63 X10^3/ul (0.83-4.51); Lymphocyte % 22.5 % (19-41); Mean Corp Hgb Conc 31.2 g/dL (32-36); Mean Corpuscular Hgb 28.7 pg (27.0-32.0); Mean Corpuscular Volume 91.9 fL (80-94); Mean Platelet Vol. 10.4 fl (6.2-12.0); Monocyte# 0.63 X10^3/uL; Monocyte% 8.7 % (0-10); NRBC Flagged by Analyzer 0 % (0-5); Neutrophil # 4.52 X10^3/uL (2.7-7.7); Neutrophil % 62.3 % (47-70); Platelet Count 201 K/mm3 (150-450); RBC Distribution Width CV 15.1 % (11.6-14.6); RBC Distribution Width SD 51.3 fl (35.1-43.9); Red Blood Count 4.92 M/mm3 (4.6-6.2); White Blood Count 7.3 K/mm3 (4.4-11.0)
[2022-08-02 10:48] LABS: Hemoglobin A1c 7.4 % (3.8-5.6)
[2022-08-02 11:02] LABS: ALB/GLOB Ratio 0.9 RATIO (0.9-2.4); AST(SGOT) 28 U/L (15-37); Alanine Aminotransfer ALT/SGPT 28 U/L (16-61); Albumin, Serum 3.6 g/dL (3.2-5.0); Alkaline Phosphatase 75 U/L (45-117); Anion Gap 7 (5-15); BUN 19 mg/dL (7-18); Calcium,Total 9.4 mg/dL (8.5-10.1); Chloride 100 mmol/L (98-107); Creatinine, Serum 1.36 mg/dL (0.70-1.30); EST Glomerular Filtration Rate 54 mL/min (>60); Est Glom Filt Rate - Afr Amer 65 mL/min (>60); Glucose 200 mg/dL (74-106); Magnesium 1.9 mg/dL (1.6-2.6); Potassium 3.8 mmol/L (3.5-5.1); Protein, Total 7.6 g/dL (6.4-8.2); Sodium Level 138 mmol/L (136-145)
== END | disposition home or self-care (01) ==
LOC: LAB 09:19
PROVIDERS: PCP Internal Medicine; Referring Provider Internal Medicine; Visit Provider Internal Medicine
DX: E11.51 Type 2 diabetes mellitus with diabetic peripheral angiopathy without gangrene (principal); I50.22 Chronic systolic (congestive) heart failure; I11.0 Hypertensive heart disease with heart failure; I73.9 Peripheral vascular disease, unspecified; I48.0 Paroxysmal atrial fibrillation; I25.810 Atherosclerosis of coronary artery bypass graft(s) without angina pectoris; I25.5 Ischemic cardiomyopathy; E78.00 Pure hypercholesterolemia, unspecified
CPT/HCPCS: 36415; 80053; 83036; 83735; 85025

== ENCOUNTER → 2022-08-06 | Outpatient (CLI) | payer MEDICARE, SELFPAY ==
--- NOTE | 2022-08-06 10:44 | ART_ITS ---
Reason For Study: PVD Procedure A bilateral lower extremity continuous wave Doppler with analog waveform analysis and ankle brachial indexes. Left Segmental Pressures Left brachial= 154mmHg. Left posterior tibial artery = 164mmHg. Left dorsalis pedis artery = 158mmHg. Left digit = 116 mmHg. Right Segmental Pressures Right brachial= 155mmHg. Right posterior tibial artery = 178mmHg. Right dorsalis pedis artery = 184mmHg. Right digit = 106 mmHg. Indices The right ankle brachial index by the posterior tibial artery is 1.15. The right ankle brachial index by the dorsalis pedis is 1.19. The right digital-brachial index is 0.68. The left ankle brachial index by the posterior tibial artery is 1.06. The left ankle brachial index by the dorsalis pedis is 1.02. The left digital-brachial index is 0.75. VL/Ankle Brachial Index Interpretation Summary Normal right posterior tibial and dorsalis pedis ankle-brachial indices of 1.15 and 1.19 respectively with normal triphasic Doppler waveforms Borderline normal right digital brachial index of 0.68 Normal left lower extremity posterior tibial and dorsalis pedis ankle-brachial indices of 1.06 and 1.02 respectively with normal triphasic Doppler waveforms. Borderline normal left digital brachial index of 0.75 Ordering Physician: Loree Mirza Referring Physician: LOREE MIRZA MD Performed By: Vijaya Ibarra, RDCS, RVT
== END | disposition home or self-care (01) ==
LOC: CVS 10:42
PROVIDERS: PCP Internal Medicine; Visit Provider Internal Medicine
DX: I73.9 Peripheral vascular disease, unspecified (principal); E11.51 Type 2 diabetes mellitus with diabetic peripheral angiopathy without gangrene; I25.10 Atherosclerotic heart disease of native coronary artery without angina pectoris; I25.5 Ischemic cardiomyopathy; E78.00 Pure hypercholesterolemia, unspecified; I10 Essential (primary) hypertension
CPT/HCPCS: 93922

== ENCOUNTER → 2022-08-31 | Outpatient (CLI) | payer MEDICARE, SELFPAY ==
[2022-08-31 09:18] LABS: Vitamin B12 391 pg/mL (211-911); Vitamin D,25 Hydroxy 32.1 ng/mL
[2022-08-31 09:28] LABS: AST(SGOT) 25 U/L (15-37); Alanine Aminotransfer ALT/SGPT 33 U/L (16-61); Albumin, Serum 3.9 g/dL (3.2-5.0); Alkaline Phosphatase 73 U/L (45-117); Anion Gap 4 (5-15); BUN 24 mg/dL (7-18); BUN/Creat Ratio 15.9 RATIO (10-20); Calcium,Total 9.3 mg/dL (8.5-10.1); Chloride 108 mmol/L (98-107); Cholesterol 144 mg/dL (200); Creatinine, Serum 1.51 mg/dL (0.70-1.30); EST Glomerular Filtration Rate 48 mL/min (>60); Est Glom Filt Rate - Afr Amer 58 mL/min (>60); Glucose 138 mg/dL (74-106); High Density Lipoprotein 28 mg/dL; Potassium 4.2 mmol/L (3.5-5.1); Protein, Total 7.9 g/dL (6.4-8.2); Sodium Level 140 mmol/L (136-145); Thyroid Stim Hormone (TSH) 0.74 uIU/mL (0.358-3.74); Triglycerides 212 mg/dL; Very Low Density Lipoprotein 42 mg/dL (5-40)
== END | disposition home or self-care (01) ==
LOC: LAB 08:25
PROVIDERS: PCP Internal Medicine; Referring Provider Internal Medicine; Visit Provider Internal Medicine
DX: E11.51 Type 2 diabetes mellitus with diabetic peripheral angiopathy without gangrene (principal); I73.9 Peripheral vascular disease, unspecified; I48.0 Paroxysmal atrial fibrillation; I25.5 Ischemic cardiomyopathy; I25.810 Atherosclerosis of coronary artery bypass graft(s) without angina pectoris; I10 Essential (primary) hypertension; E78.5 Hyperlipidemia, unspecified; E55.9 Vitamin D deficiency, unspecified; Z95.1 Presence of aortocoronary bypass graft; Z95.5 Presence of coronary angioplasty implant and graft; Z12.5 Encounter for screening for malignant neoplasm of prostate
CPT/HCPCS: 36415; 80053; 80061; 82306; 82607; 84153; 84443; G0103

== ENCOUNTER → 2022-10-08 | Outpatient (CLI) | payer MEDICARE, SELFPAY ==
--- NOTE | 2022-10-08 09:53 | ECHOLC_ITS ---
Reason For Study: CHF Procedure This was a limited 2D transthoracic echocardiogram. The study was technically difficult. Contrast injection was performed. Exam performed in department. Left Ventricle Normal LV size. The estimated ejection fraction is 38 %. Septal motion consistent with bundle branch block. There is moderate global hypokinesis of the left ventricle. Right Ventricle Normal RV size. Normal systolic function. Atria Normal left atrium. Normal right atrium. Mitral Valve There is moderate mitral annular calcification. Mild (1+) eccentric mitral valve insufficiency. Tricuspid Valve Normal tricuspid valve. Aortic Valve Trisinus/trileaflet aortic valve. Pulmonic Valve Normal pulmonic valve. Great Vessels Normal aortic root. The pulmonary artery is normal size. Normal inferior vena cava. Pericardium/Pleural No pericardial effusion. Medication 22 gauge I.V. with prn adaptor inserted into right arm. Diluted definity 2ml given slow IV push to enhance endocardial definition. MMode/2D Measurements & Calculations LVIDd: 5.8 cm IVSd: 1.1 cm LA dimension: 5.1 cm LVIDs: 5.0 cm LVPWd: 1.2 cm FS: 13.1 % LAV(MOD-sp4): 65.0 ml LVAd ap4: 43.9 cm2 LVAd ap2: 47.7 cm2 LVLd ap4: 9.4 cm LVLd ap2: 9.6 cm EDV(MOD-sp4): 167.4 ml EDV(MOD-sp2): 199.5 ml EDV(sp4-el): 174.6 ml EDV(sp2-el): 200.5 ml LVAs ap4: 33.8 cm2 LVAs ap2: 34.9 cm2 LVLs ap4: 8.3 cm LVLs ap2: 8.7 cm ESV(MOD-sp4): 112.9 ml ESV(MOD-sp2): 121.4 ml ESV(sp4-el): 116.3 ml ESV(sp2-el): 119.7 ml EF(MOD-sp4): 32.5 % EF(MOD-sp2): 39.2 % EF(sp4-el): 33.4 % SV(MOD-sp4): 54.5 ml SV(MOD-sp2): 78.1 ml SV(sp4-el): 58.2 ml LA A4 area: 21.2 cm2 RA A4 area: 16.9 cm2 Time Measurements MV dec time: 0.28 sec Doppler Measurements & Calculations MV E max roc: 136.7 cm/sec Lat Peak E' Roc: 10.0 cm/sec Med Peak E' Roc: 6.9 cm/sec MV A max roc: 84.0 cm/sec E/E' lat: 13.7 E/E' med: 19.7 MV E/A: 1.6 MV V2 max: 144.9 cm/sec MV P1/2t max roc: 145.4 cm/sec MR max roc: 482.8 cm/sec MV max P.4 mmHg MV P1/2t: 89.5 msec MR max P.2 mmHg MV V2 mean: 59.2 cm/sec MV mean P.9 mmHg MV dec slope: 475.8 cm/sec2 MV V2 VTI: 49.3 cm MVA(P1/2t): 2.5 cm2 ECHO/Echo Limited w/Contrast Interpretation Summary Normal LV size. The estimated ejection fraction is 38 %. There is moderate global hypokinesis of the left ventricle. Septal motion consistent with bundle branch block. Ordering Physician: Simon Ibarra Referring Physician: Loree Salazar M.D. Performed By: Blair Escamilla RCS
== END | disposition home or self-care (01) ==
LOC: CVS 09:53
PROVIDERS: PCP Internal Medicine; Referring Provider Nurse Practitioner Family; Visit Provider Nurse Practitioner Family
DX: I25.10 Atherosclerotic heart disease of native coronary artery without angina pectoris (principal); I48.0 Paroxysmal atrial fibrillation; I25.5 Ischemic cardiomyopathy; R00.1 Bradycardia, unspecified
CPT/HCPCS: 93225; 93226; 93308; Q9957; A4216; C8924

== ENCOUNTER → 2022-12-03 | Outpatient (CLI) | payer MEDICARE, SELFPAY ==
[2022-12-03 11:06] LABS: Anion Gap 4 (5-15); BUN 22 mg/dL (7-18); BUN/Creat Ratio 15.2 RATIO (10-20); Calcium,Total 9.2 mg/dL (8.5-10.1); Chloride 107 mmol/L (98-107); Creatinine, Serum 1.45 mg/dL (0.70-1.30); EST Glomerular Filtration Rate 50 mL/min (>60); Est Glom Filt Rate - Afr Amer 61 mL/min (>60); Glucose 173 mg/dL (74-106); Potassium 4.1 mmol/L (3.5-5.1); Sodium Level 139 mmol/L (136-145)
== END | disposition home or self-care (01) ==
PROVIDERS: PCP Internal Medicine; Referring Provider Nurse Practitioner Family; Visit Provider Nurse Practitioner Family
DX: I48.0 Paroxysmal atrial fibrillation (principal); I44.7 Left bundle-branch block, unspecified; R00.1 Bradycardia, unspecified; I25.5 Ischemic cardiomyopathy
CPT/HCPCS: 36415; 80048

== ENCOUNTER → 2022-12-17 | Outpatient (CLI) | payer MEDICARE, SELFPAY ==
[2022-12-17 12:47] LABS: Anion Gap 7 (5-15); BUN 23 mg/dL (7-18); BUN/Creat Ratio 15.6 RATIO (10-20); Calcium,Total 9.1 mg/dL (8.5-10.1); Chloride 101 mmol/L (98-107); Creatinine, Serum 1.47 mg/dL (0.70-1.30); EST Glomerular Filtration Rate 49 mL/min (>60); Est Glom Filt Rate - Afr Amer 60 mL/min (>60); Free T3 2.6 pg/mL (2.18-3.98); Glucose 131 mg/dL (74-106); Magnesium 2.4 mg/dL (1.6-2.6); Sodium Level 137 mmol/L (136-145); T4 Free Direct 1.34 ng/dL (0.76-1.46)
== END | disposition home or self-care (01) ==
LOC: LAB 11:28
PROVIDERS: PCP Internal Medicine; Referring Provider Internal Medicine; Visit Provider Internal Medicine
DX: E11.9 Type 2 diabetes mellitus without complications (principal); I48.0 Paroxysmal atrial fibrillation; I10 Essential (primary) hypertension; E78.5 Hyperlipidemia, unspecified; E87.6 Hypokalemia
CPT/HCPCS: 36415; 80048; 83735; 84439; 84481

== ENCOUNTER → 2022-12-24 | Day surgery (SDC) | payer MEDICARE, SELFPAY ==
[2022-12-23 07:04] VITALS: BMI 32.2
--- NOTE | 2022-12-24 10:13 | PCM.OP.PRO ---
Procedure Report Date of Procedure: 12/24/22 DC cardioversion. 77-year-old male with a history of atrial flutter with a left bundle branch block who has been on therapeutic anticoagulation. Patient was brought to the cardiac catheterization lab in the postabsorptive nonsedated state. Informed consent was obtained. Patient was seen by Dr. Alford of the critical care division. Anterior-posterior pads were applied. The patient was administered 6 mg of intravenous etomidate. 200 J of synchronized biphasic DC cardioversion energy were applied with prompt reversal to sinus rhythm. Patient tolerated the procedure well. Conclusion: Successful DC cardioversion from atrial flutter to sinus rhythm. Follow-up as per office protocol. Referred to EP for evaluation.
--- NOTE | 2022-12-24 11:05 | PCM.OP.PRO ---
Procedure Report Date of Procedure: 12/24/22 CONSCIOUS SEDATION REPORT DATE OF SERVICE: December 24, 2022 BRIEF HISTORY OF PRESENT ILLNESS: The patient is a 77-year-old male who presented to [facility] for elective outpatient cardioversion due to underlying atrial fibrillation. The patient did undergo a prior cardioversion in December 2020, during which time, 6 mg of etomidate was utilized for sedation purposes. The patient is systemically anticoagulated on Eliquis. His last surface echocardiogram demonstrated an ejection fraction of 38%. He denied any prior anesthetic complications. PHYSICAL EXAMINATION: VITAL SIGNS: Reviewed and were acceptable. GENERAL: The patient is a male, in no apparent distress, speaking in full sentences. HEENT: Normocephalic, atraumatic. Mucous membranes are moist and pink. Good mouth opening noted. Trachea is midline. Good neck mobility. CHEST: S1, S2 irregularly irregular. No murmurs, rubs or gallops were noted. LUNGS: Clear to auscultation bilaterally without appreciable wheezes, rales or rhonchi. ABDOMEN: Soft, nontender, nondistended. Positive bowel sounds. EXTREMITIES: There is no clubbing or cyanosis. 1+ lower extremity edema with venous stasis changes. ASA Class: II DESCRIPTION OF PROCEDURE: After confirmation of informed consent, the patient's anesthesia plan was reviewed in detail. Etomidate was chosen. Risks and benefits were reviewed and the patient agreed to proceed. At 1002, the patient was given 6 mg of etomidate. The patient achieved an appropriate level of sedation and was given a 200 joule synchronized cardioversion by Dr. Pettit at the bedside. This was successful in achieving normal sinus rhythm. The patient was monitored until 1015, at which time he reached his baseline mental status and function. The patient tolerated the procedure well. COMPLICATIONS: None ESTIMATED BLOOD LOSS: None RECOMMENDATIONS: Okay to recover in usual fashion. Procedures Pulmonary 9xxxx: [id number] Con Sedation
== END | disposition home or self-care (01) ==
PROVIDERS: PCP Internal Medicine; Referring Provider Internal Medicine Cardiovascular Disease; Visit Provider Internal Medicine Cardiovascular Disease
DX: I48.92 Unspecified atrial flutter (principal); I50.31 Acute diastolic (congestive) heart failure; I11.0 Hypertensive heart disease with heart failure; I48.0 Paroxysmal atrial fibrillation; E11.9 Type 2 diabetes mellitus without complications; I25.10 Atherosclerotic heart disease of native coronary artery without angina pectoris; Z95.1 Presence of aortocoronary bypass graft; E78.5 Hyperlipidemia, unspecified; E66.9 Obesity, unspecified; I25.2 Old myocardial infarction; Z95.5 Presence of coronary angioplasty implant and graft; Z87.891 Personal history of nicotine dependence; I25.5 Ischemic cardiomyopathy; Z98.890 Other specified postprocedural states; I44.7 Left bundle-branch block, unspecified; Z79.01 Long term (current) use of anticoagulants
CPT/HCPCS: 92960; 93005; J7040

== ENCOUNTER → 2023-01-17 | Outpatient (CLI) | payer MEDICARE, SELFPAY ==
--- NOTE | 2023-01-17 15:00 | CT_ITS ---
ACR Level 3 findings have been noted. An addendum which confirms receipt of the report will follow. INDICATION: Gross hematuria (on anticoagulation) EXAMINATION: CT ABDOMEN AND PELVIS WITH AND WITHOUT CONTRAST - CT Abdomen And Pelvis WO/W Contrast Injection TECHNIQUE: Helically acquired images were obtained of the abdomen and pelvis both before and after IV contrast. A radiation dose optimization technique was used for this scan. IV Contrast dosage and agent: 100 cc [id number] Oral contrast: None. COMPARISON: None. FINDINGS: LOWER CHEST: Bibasilar pleural effusions. Pleural-based soft tissue density lesion left lower lobe posteriorly measures 4.7 x 3.0 x 1.4 cm. No cardiomegaly or pericardial effusion. LIVER: Homogeneous. No focal mass. GALLBLADDER AND BILIARY TREE: No calcified gallstones. No gallbladder distension or wall edema. No intra- or extrahepatic biliary ductal dilation. PANCREAS: No focal cystic or solid mass. SPLEEN: Normal size without focal cystic or solid mass. ADRENAL GLANDS: No nodules. KIDNEYS AND URETERS: Small right cortical cysts. No hydronephrosis. PERITONEUM: No ascites or free air. BOWEL: Normal appendix. No stomach or bowel distension. Severe sigmoid diverticulosis with mild wall thickening and mild adjacent pericolonic stranding. LYMPH NODES: No enlarged mesenteric or retroperitoneal lymph nodes. VESSELS: Aorta is non-dilated. URINARY BLADDER: Irregular wall thickening with mild adjacent stranding. REPRODUCTIVE ORGANS: No pelvic masses. ABDOMINAL WALL: No discrete abdominal or pelvic wall hernia. BONES: No acute or aggressive abnormality. CT/CT Abd/Pelvis W/WO Contrast IMPRESSION: Sigmoid diverticulosis with CT changes of acute diverticulitis. Bladder wall changes suspicious for infection. Consider cystoscopic correlation to exclude intrinsic bladder wall lesions. Pleural-based soft tissue density lesion left lower lobe measuring up to 4.7 cm. Findings suspicious for possible neoplasia. Recommend short-term follow-up in 3-4 weeks following conservative therapy and consideration for histologic diagnosis if there is no resolution within clinically expected time frame. Bibasilar pleural effusions. Electronically Signed: Abiodun Schulz MD at 18:08 EDT ,
== END | disposition home or self-care (01) ==
LOC: CT 14:30
PROVIDERS: PCP Internal Medicine; Referring Provider Internal Medicine; Visit Provider Internal Medicine
DX: R31.9 Hematuria, unspecified (principal)
CPT/HCPCS: 74178; Q9967; A4216

== ENCOUNTER → 2023-01-18 | Outpatient (CLI) | payer MEDICARE, SELFPAY ==
[2023-01-18 08:59] LABS: Bacteria 0 SEEN /hpf (None Seen); Mucous, Urine 0 SEEN /hpf (<or=2+); Red Blood Cells-Urine 0 SEEN /hpf (0-5); Squamous Epithelial Cells - UA 0 SEEN /hpf (0-5); White Blood Cells 0 SEEN /hpf (0-5)
[2023-01-18 09:20] LABS: Color, Urine Yellow (Yellow); Glucose, Dipstick Normal (Normal); Ketone-Dipstick Negative (Negative); Leukocyte Esterase-Dipstick Negative /ul (Negative); Nitrite-Dipstick Negative (Negative); Occult Blood-Urine 50 /ul (Negative); Protein-Dipstick 15 mg/dl (Negative); Urine Bilirubin Dipstick Negative (Negative); Urine Clarity Clear (Clear); Urine Urobilinogen 1 mg/dl (Normal)
== END | disposition home or self-care (01) ==
LOC: LAB 08:56
PROVIDERS: PCP Internal Medicine; Referring Provider Internal Medicine; Visit Provider Internal Medicine
DX: R31.9 Hematuria, unspecified (principal)
CPT/HCPCS: 81001

== ENCOUNTER → 2023-04-01 | Outpatient (CLI) | payer MEDICARE, SELFPAY ==
--- NOTE | 2023-04-01 11:08 | US_ITS ---
EXAM: US LEFT LOWER EXTREMITY NON-VASCULAR, COMPLETE CLINICAL INDICATION: left groin swelling, post cath/ablation TECHNIQUE: Real-time ultrasound scan of the left lower extremity with image documentation. COMPARISON: No relevant prior studies available. FINDINGS: 3.8 x 1.9 x 1.0 cm hypoechoic mass noted at the left groin demonstrating a moderate amount of vascularity suggestive of an abnormal lymph node. No evidence of pseudoaneurysm. No acoustic shadowing to suggest foreign body. US/Ext Non Vasc Limited/Soft Tiss IMPRESSION: Vascular left groin mass suggestive of an inflammatory lymph node. Follow-up to exclude neoplasm. Electronically Signed: Rodríguez Magana MD at 12:42 EDT ,
== END | disposition home or self-care (01) ==
LOC: US 11:06
PROVIDERS: PCP Internal Medicine; Referring Provider Internal Medicine; Visit Provider Internal Medicine
DX: Z98.890 Other specified postprocedural states (principal)
CPT/HCPCS: 76882

== ENCOUNTER → 2023-05-04 | Outpatient (CLI) | payer MEDICARE, SELFPAY ==
[2023-05-04 11:11] LABS: Mucous, Urine 0 SEEN /hpf (<or=2+)
--- NOTE | 2023-05-04 11:21 | RAD_ITS ---
INDICATION: fever, malaise EXAMINATION/TECHNIQUE: X-RAY - XR Chest 2 Views COMPARISON: Prior study dated: 07/21/2022 FINDINGS: LINES/DEVICES: Median sternotomy wires appear intact. LUNGS: The lungs are well expanded. Peripheral linear opacities at the left base. No dense consolidation. Possible small left pleural effusion. No pneumothorax. MEDIASTINUM AND CARDIOVASCULAR STRUCTURES: Cardiac silhouette not enlarged. Central airways and mediastinal contour are unremarkable. BONES AND SOFT TISSUES: No acute abnormality. RAD/Chest PA and Lateral IMPRESSION: No dense consolidation. Linear peripheral left basilar opacities may be atelectasis, though mild edema possible. There may be a small left pleural effusion. Electronically Signed: Rafa Riggs MD at 17:37 EST ,
[2023-05-04 12:35] LABS: Absolute Lymphocyte Count 1.37 X10^3/uL (0.83-4.51); Absolute Neutrophil Count 5.2 X10^3/uL (2.0-7.7); Basophil# 0.06 X10^3/uL; Basophil% 0.8 % (0-1); Eosinophil# 0.22 X10^3/uL; Eosinophils% 2.9 % (0-5); Hematocrit 45.3 % (40-54); Hemoglobin 14.6 g/dL (13.0-16.5); Lymphocyte # 1.37 X10^3/ul (0.83-4.51); Lymphocyte % 17.8 % (19-41); Mean Corp Hgb Conc 32.2 g/dL (32-36); Mean Corpuscular Hgb 29.1 pg (27.0-32.0); Mean Corpuscular Volume 90.2 fL (80-94); Monocyte# 0.79 X10^3/uL; Monocyte% 10.2 % (0-10); NRBC Flagged by Analyzer 0 % (0-5); Neutrophil # 5.17 X10^3/uL (2.7-7.7); Platelet Count 346 K/mm3 (150-450); RBC Distribution Width CV 15.7 % (11.6-14.6); RBC Distribution Width SD 52.2 fl (35.1-43.9); Red Blood Count 5.02 M/mm3 (4.6-6.2); White Blood Count 7.7 K/mm3 (4.4-11.0)
[2023-05-04 12:43] LABS: Color, Urine Amber (Yellow); Glucose, Dipstick Normal (Normal); Ketone-Dipstick 5 mg/dl (Negative); Leukocyte Esterase-Dipstick 25 /ul (Negative); Nitrite-Dipstick Negative (Negative); Occult Blood-Urine 10 /ul (Negative); Protein-Dipstick 15 mg/dl (Negative); Specific Gravity, Urine 1.015 (1.002-1.030); Urine Clarity Sl. Cloudy (Clear); Urine Urobilinogen 4 mg/dl (Normal)
[2023-05-04 12:49] LABS: Urine Bilirubin Dipstick 1 mg/dL (Negative)
[2023-05-04 12:52] LABS: Bacteria RARE /hpf (None Seen); Red Blood Cells-Urine 0-5 SEEN /hpf (0-5); Squamous Epithelial Cells - UA 0-5 SEEN /hpf (0-5); White Blood Cells 0-5 SEEN /hpf (0-5)
[2023-05-04 13:14] LABS: ALB/GLOB Ratio 0.8 RATIO (0.9-2.4); AST(SGOT) 32 U/L (15-37); Alanine Aminotransfer ALT/SGPT 30 U/L (16-61); Albumin, Serum 3.4 g/dL (3.2-5.0); Alkaline Phosphatase 85 U/L (45-117); Anion Gap 6 (5-15); BUN 15 mg/dL (7-18); BUN/Creat Ratio 13.6 RATIO (10-20); Calcium,Total 8.9 mg/dL (8.5-10.1); Chloride 106 mmol/L (98-107); EST Glomerular Filtration Rate 69 mL/min (>60); Est Glom Filt Rate - Afr Amer 83 mL/min (>60); Globulin 4.3 g/dL (2.2-4.2); Glucose 93 mg/dL (74-106); Potassium 4.3 mmol/L (3.5-5.1); Protein, Total 7.7 g/dL (6.4-8.2); Sodium Level 139 mmol/L (136-145)
== END | disposition home or self-care (01) ==
PROVIDERS: PCP Internal Medicine; Referring Provider Internal Medicine; Visit Provider Internal Medicine
DX: R19.09 Other intra-abdominal and pelvic swelling, mass and lump (principal); E11.9 Type 2 diabetes mellitus without complications; R31.9 Hematuria, unspecified; R53.81 Other malaise; R53.83 Other fatigue
CPT/HCPCS: 36415; 71046; 80053; 81001; 85025